=== PATIENT | female | born 1995 | race Hispanic/Latino ===

== ENCOUNTER 2018-03-05 14:32 | Emergency (ER) | payer SELFPAY ==
[2018-03-05] MEDS ORDERED: SUCRALFATE 1GM/10ML UCUP PO ONE (16:00)
[2018-03-05 16:26] LABS: Bicarbonate 25 mEq/L (21-31); Glucose Level 107 mg/dL (65-120); Lipase 29 U/L (22-51); Potassium 3.5 mEq/L (3.6-5.0); Sodium Level 134 mEq/L (135-145)
[2018-03-05 16:30] LABS: Absolute Lymphocytes (CBC) 1.5 K/uL (0.7-4.9); Absolute Monocytes 0.4 K/uL (0.1-1.3); Absolute Neutrophil 6.1 K/uL (1.8-8.0); Basophils % 0.2 % (0-1.3); Eosinophils % 0.6 % (0-4.4); Hematocrit 38.9 % (36.0-45.0); Lymphocytes % 18.4 % (15.3-44.8); MCH 29.4 pg (27.0-35.0); MCV 87.7 fL (80-100); MPV 8.3 fL (7.6-11.3); Monocytes % 5.3 % (3.3-12.3); RBC Red Blood Cell Count 4.43 M/uL (3.86-4.86)
[2018-03-05 16:33] LABS: ALT/SGPT 11 IU/L (10-60); AST/SGOT 14 IU/L (10-42); Albumin 4.3 g/dL (3.2-5.5); Alkaline Phosphatase 43 IU/L (42-121); BUN Blood Urea Nitrogen 12 mg/dL (6-20); Bilirubin Direct < 0.1 mg/dL (0-0.2); Bilirubin Total 0.5 mg/dL (0.3-1.2); Protein, Total 7.2 g/dL (6.0-8.3)
[2018-03-05 16:35] LABS: Urine Bacteria LOADED /HPF (<20); Urine Culture Reflex Order REFLEXED; Urine RBC <5 /HPF (NONE SEEN)
[2018-03-05 16:36] LABS: Urine Blood NEGATIVE (NEG); Urine Glucose NEGATIVE (NEG); Urine Protein TRACE (NEG); Urine Specific Gravity 1.025 (1.005-1.030); Urine pH 6.5 (5.0-7.0)
--- NOTE | 2018-03-05 18:30 | RAD REPORT ---
EXAM DESCRIPTION: US - 1St Trimest Single 1St Fetus - 03/05/2018 5:25 pm CLINICAL HISTORY: with abdominal pain COMPARISON: None FINDINGS: The uterus measures 8 x 6 x 7 centimeters. An intrauterine with a crown-rump length of 2.3 centimeters is seen cardiac activity is not visualized. The ovaries are normal in size and echotexture. No significant free fluid is seen. IMPRESSION: demise with an estimated gestational age 9 weeks 0 days
--- NOTE | 2018-03-05 19:06 | EDPHYS ---
Physician Documentation [facility] Name: Patsy Gupta Age: 22 yrs Sex: Female : 1995 Arrival Date: 03/05/2018 Time: 14:33 Bed 13 Private MD: ED Physician Ankush Santacruz HPI: 03/05 19:18 This 22 yrs old Female presents to ER via Ambulatory with complaints of gs Abdominal Pain. 19:18 The patient presents with pelvic pain, that is located in/on the right lower quadrant gs and left lower quadrant. Onset: The symptoms/episode began/occurred gradually, 2 day(s) ago, and became persistent. Modifying factors: The symptoms are alleviated by nothing, the symptoms are aggravated by urinating. Associated signs and symptoms: Pertinent negatives: fever, vaginal bleeding, vaginal discharge, vomiting. Severity of symptoms: At their worst the symptoms were moderate, in the emergency department the symptoms are unchanged. The patient has not experienced similar symptoms in the past. 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 - Social history:: Smoking status: Patient/guardian denies using tobacco. ROS: 19:18 All other systems are negative. gs Exam: 19:18 Head/Face: Normocephalic, atraumatic. Eyes: Pupils equal round and reactive to light, gs extra-ocular motions intact. Lids and lashes normal. Conjunctiva and sclera are non-icteric and not injected. Cornea within normal limits. Periorbital areas with no swelling, redness, or edema. ENT: Nares patent. No nasal discharge, no septal abnormalities noted. Tympanic membranes are normal and external auditory canals are clear. Oropharynx with no redness, swelling, or masses, exudates, or evidence of obstruction, uvula midline. Mucous membranes moist. Neck: Trachea midline, no thyromegaly or masses palpated, and no cervical lymphadenopathy. Supple, full range of motion without nuchal rigidity, or vertebral point tenderness. No Meningismus. Chest/axilla: Normal chest wall appearance and motion. Nontender with no deformity. No lesions are appreciated. Cardiovascular: Regular rate and rhythm with a normal S1 and S2. No gallops, murmurs, or rubs. Normal PMI, no JVD. No pulse deficits. Respiratory: Lungs have equal breath sounds bilaterally, clear to auscultation and percussion. No rales, rhonchi or wheezes noted. No increased work of breathing, no retractions or nasal flaring. Back: No spinal tenderness. No costovertebral tenderness. Full range of motion. Skin: Warm, dry with normal turgor. Normal color with no rashes, no lesions, and no evidence of cellulitis. MS/ Extremity: Pulses equal, no cyanosis. Neurovascular intact. Full, normal range of motion. Neuro: Awake and alert, GCS 15, oriented to person, place, time, and situation. Cranial nerves II-XII grossly intact. Motor strength 5/5 in all extremities. Sensory grossly intact. Cerebellar exam normal. Normal gait. 19:18 Constitutional: The patient appears alert, awake. 19:18 Abdomen/GI: Palpation: moderate abdominal tenderness, in the suprapubic area. Vital Signs: 14:38 BP 113 / 78; Pulse 74; Resp 18; Temp 99.4(TE); Pulse Ox 100% on R/A; Weight 45.36 kg; hj Height 5 ft. 1 in. (154.94 cm); Pain 7/10; 16:13 BP 108 / 82; Pulse 62; Resp 14; Temp 98.3; Pulse Ox 99% on R/A; Pain 6/10; ch 17:30 BP 110 / 76; Pulse 65; Resp 18; Temp 98.5; Pulse Ox 99% on R/A; Pain 4/10; ch 18:25 BP 105 / 64; Pulse 62; Resp 16; Pulse Ox 99% on R/A; mh5 14:38 Body Mass Index 18.89 (45.36 kg, 154.94 cm) hj MDM: 15:28 Patient medically screened. 19:18 Differential diagnosis: ectopic , urinary tract infection. Data reviewed: vital signs, nurses notes. Counseling: I had a detailed discussion with the patient and/or guardian regarding: the historical points, exam findings, and any diagnostic results supporting the discharge/admit diagnosis, lab results, the need for outpatient follow up. Response to treatment: the patient's symptoms have markedly improved after treatment, and as a result, I will discharge patient. 03/05 15:32 Order name: Basic Metabolic Panel; Complete Time: 18:48 03/05 15:32 Order name: CBC with Diff; Complete Time: 18:48 03/05 15:32 Order name: Hepatic Function; Complete Time: 18:48 03/05 15:32 Order name: Lipase; Complete Time: 18:48 03/05 15:32 Order name: Urine Microscopic Only; Complete Time: 18:48 03/05 16:25 Order name: Urine --Ancillary (enter results); Complete Time: 18:48 03/05 15:32 Order name: Urine Test (obtain specimen); Complete Time: 16:43 03/05 15:32 Order name: Labs collected and sent; Complete Time: 18:50 03/05 16:25 Order name: Urine Dipstick--Ancillary (enter results); Complete Time: 18:48 03/05 16:36 Order name: Urine Culture [facility] 03/05 16:42 Order name: 1St Trimest Single 1St Fetus; Complete Time: 18:48 [facility] 03/05 15:32 Order name: Urine Dipstick-Ancillary (obtain specimen); Complete Time: 16:42 Administered Medications: 16:13 Drug: CarafATE 1 grams Route: PO; 16:42 Follow up: Response: No adverse reaction Disposition: 03/05/18 19:05 Discharged to Home. Impression: Cystitis, Incomplete spontaneous without complication. - Condition is Stable. - Discharge Instructions: Incomplete Miscarriage, Urinary Tract Infection. - Prescriptions for Macrobid 100 mg Oral Capsule - take 1 capsule by ORAL route every 12 hours for 5 days; 10 capsule. - School release form, Work release form, Medication Reconciliation Form, Thank You Letter, Antibiotic Education, Prescription Opioid Use form. - Follow up: Snow Ni MD; When: 2 - 3 days; Reason: Re-evaluation by your physician. Signatures: Dispatcher [employer] [facility] Rakel Urrutia RN RN Evans Hein RN RN hj Starr, Gregory, MD MD Winsome Reece RN RN rk2 Corrections: (The following items were deleted from the chart) 16:42 16:17 Pelvis Complete+US.RAD.BRZ ordered. EDMS EDMS 19:37 19:05 03/05/2018 19:05 Discharged to Home. Impression: Cystitis; Incomplete spontaneous rk2 without complication. Condition is Stable. Forms are School release form, Work release form, Medication Reconciliation Form, Thank You Letter, Antibiotic Education, Prescription Opioid Use. Follow up: Snow Ni; When: 2 - 3 days; Reason: Re-evaluation by your physician. gs
--- NOTE | 2018-03-05 19:06 | ER ---
Nurse's Notes [facility] Name: Patsy Gupta Age: 22 yrs Sex: Female : 1995 Arrival Date: 03/05/2018 Time: 14:33 Bed 13 Private MD: Diagnosis: Cystitis;Incomplete spontaneous without complication Presentation: 03/05 14:37 Presenting complaint: Patient states: i have this abd pain since last week, denies hj nausea and vomiting; denies diarrhea or constipation; denies fever and chills;. Transition of care: patient was not received from another setting of care. Onset of symptoms was March 05, 2018 at 14:38. Initial Sepsis Screen: Does the patient meet any 2 criteria? No. Patient's initial sepsis screen is negative. Does the patient have a suspected source of infection? No. Patient's initial sepsis screen is negative. Care prior to arrival: None. 14:37 Method Of Arrival: Ambulatory 14:37 Acuity: EMIR 3 hj Triage Assessment: 14:38 General: Appears in no apparent distress. uncomfortable, Behavior is calm, cooperative, hj appropriate for age. Pain: Complains of pain in abdomen. GI: Reports lower abdominal pain, upper abdominal pain. 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 - Social history:: Smoking status: Patient/guardian denies using tobacco. Screenin:13 Abuse screen: Denies threats or abuse. Denies injuries from another. Nutritional ch screening: No deficits noted. Tuberculosis screening: No symptoms or risk factors identified. Fall Risk None identified. Assessment: 14:40 GI: Bowel sounds present X 4 quads. Abd is soft Abdomen is tender to palpation. hj 16:13 General: Appears in no apparent distress. comfortable, Behavior is calm, cooperative, ch appropriate for age. Pain: Complains of pain in abdomen Pain currently is 6 out of 10 on a pain scale. Neuro: No deficits noted. Respiratory: Airway is patent Respiratory effort is even, unlabored, Breath sounds are clear bilaterally. Derm: Skin is pink, warm \T\ dry. 16:24 Reassessment: Patient appears in no apparent distress at this time. pt states she does ch not want an IV because she has her child with her. pt is trying to get her sister to come watch the baby. physician notified pt has a positive urine . 16:51 Reassessment: Patient appears in no apparent distress at this time. pt transported to US by wheelchair. 17:45 Reassessment: Patient appears in no apparent distress at this time. No changes from previously documented assessment. Patient and/or family updated on plan of care and expected duration. Pain level reassessed. Patient is alert, oriented x 3, equal unlabored respirations, skin warm/dry/pink. 18:51 Reassessment: Patient appears in no apparent distress at this time. No changes from previously documented assessment. Patient and/or family updated on plan of care and expected duration. Pain level reassessed. Patient is alert, oriented x 3, equal unlabored respirations, skin warm/dry/pink. Vital Signs: 14:38 BP 113 / 78; Pulse 74; Resp 18; Temp 99.4(TE); Pulse Ox 100% on R/A; Weight 45.36 kg; hj Height 5 ft. 1 in. (154.94 cm); Pain 7/10; 16:13 BP 108 / 82; Pulse 62; Resp 14; Temp 98.3; Pulse Ox 99% on R/A; Pain 6/10; ch 17:30 BP 110 / 76; Pulse 65; Resp 18; Temp 98.5; Pulse Ox 99% on R/A; Pain 4/10; ch 18:25 BP 105 / 64; Pulse 62; Resp 16; Pulse Ox 99% on R/A; mh5 14:38 Body Mass Index 18.89 (45.36 kg, 154.94 cm) ED Course: 14:33 Patient arrived in ED. sb2 14:38 Triage completed. hj 14:40 Arm band placed on right wrist. 14:49 Ankush Santacruz MD is Attending Physician. 14:59 Rakel Urrutia, MATTHEW is Primary Nurse. 16:13 No apparent distress. Resting quietly. 16:13 Patient has correct armband on for positive identification. Bed in low position. Call light in reach. Side rails up X 1. Adult w/ patient. Pulse ox on. NIBP on. 16:13 No provider procedures requiring assistance completed. Initial lab(s) drawn, by wy, sent to lab. Urine collected: clean catch specimen. 17:04 Ultrasound completed. Patient tolerated well. cy 17:25 1[facility] Trimest Single 1St Fetus In Process Unspecified. EDMS 17:30 Patient did not have IV access during this emergency room visit. 19:01 Snow Ni MD is Referral Physician. Administered Medications: 16:13 Drug: CarafATE 1 grams Route: PO; 16:42 Follow up: Response: No adverse reaction Outcome: 19:05 Discharge ordered by . 19:37 Discharged to 2 19:37 Condition: good 19:37 Discharge instructions given to patient, Prescriptions given X 1. 19:37 Patient left the ED. rk2 Signatures: Dispatcher [employer] EDMS Rakel Urrutia, MATTHEW RN Evans Banuelos RN RN Carol Ann Wiseman 5 nAkush Santacruz MD MD [facility] Winsome Reece RN RN rk2 Ivon Guajardo sb2 Corrections: (The following items were deleted from the chart) 14:40 14:38 Pulse 74bpm; Resp 18bpm; Pulse Ox 100% RA; Temp 99.4F Temporal; 45.36 kg; Height hj 5 ft. 1 in.; BMI: 18.8; Pain 7/10; hj
[2018-03-05 20:29] VITALS: O2SAT 99
[2018-03-05 20:31] VITALS: TEMP 98.5
[2018-03-05 20:32] VITALS: BP 105/64
== END 2018-03-05 19:37 | disposition home or self-care (01) ==
LOC: ER 14:32
DX: O03.4 Incomplete spontaneous abortion without complication (principal); O23.11 Infections of bladder in pregnancy, first trimester
CPT/HCPCS: 36415; 76801; 80048; 80076; 81003; 81015; 81025; 83690; 85025; 87077; 87086; 87088; 87186; 99284

== ENCOUNTER 2018-03-25 15:04 | Emergency (ER) | payer SELFPAY ==
[2018-03-25] MEDS ORDERED: METHYLPREDNISOLONE 125 MG INJ ONE (15:13)
[2018-03-25] MEDS ORDERED: DIPHENHYDRAMINE 50 MG/ML VIAL ONE (15:14)
[2018-03-25] MEDS ORDERED: DEXAMETHASONE 10 MG/ML VIAL ONE (15:14)
[2018-03-25] MEDS ORDERED: NA CHLORIDE 0.9% 1,000 ML ONE (15:14)
[2018-03-25] MEDS ORDERED: FAMOTIDINE 20 MG/2 ML VIAL IV ONE (15:19)
[2018-03-25 15:33] LABS: Absolute Lymphocytes (CBC) 2.6 K/uL (0.7-4.9); Absolute Monocytes 0.3 K/uL (0.1-1.3); Absolute Neutrophil 3.8 K/uL (1.8-8.0); Basophils % 0.1 % (0-1.3); Eosinophils % 0.2 % (0-4.4); Hematocrit 47.6 % (36.0-45.0); Lymphocytes % 39.1 % (15.3-44.8); MCH 29.3 pg (27.0-35.0); MCV 89.2 fL (80-100); MPV 8.1 fL (7.6-11.3); Monocytes % 4.3 % (3.3-12.3); RBC Red Blood Cell Count 5.34 M/uL (3.86-4.86)
[2018-03-25] MEDS ORDERED: predniSONE 20 MG TAB ONE (15:45)
[2018-03-25 15:48] LABS: BUN Blood Urea Nitrogen 12 mg/dL (6-20); Bicarbonate 25 mEq/L (21-31); Glucose Level 104 mg/dL (65-120); Potassium 3.7 mEq/L (3.6-5.0); Sodium Level 135 mEq/L (135-145)
--- NOTE | 2018-03-25 16:08 | EDPHYS ---
Physician Documentation [facility] Name: Patsy Gupta Age: 22 yrs Sex: Female : 1995 Arrival Date: 03/25/2018 Time: 15:08 Bed 4 Private MD: Out, [facility] ED Physician Joseph Jim HPI: 03/25 15:21 This 22 yrs old Female presents to ER via Ambulatory with complaints of nick Allergic Reaction. 15:21 The patient presents with difficulty swallowing, hoarse voice, itching, rash, redness nick of skin, swelling of the lips. Onset: The symptoms/episode began/occurred just prior to arrival. Associated signs and symptoms: The patient has no apparent associated signs or symptoms. Possible causes: ants. At home the patient or guardian has treated the symptoms with nothing. Severity of symptoms: At their worst the symptoms were mild moderate in the emergency department the symptoms are unchanged. The patient has not experienced similar symptoms in the past. Historical: - Allergies: 15:15 No Known Allergies; ph - Home Meds: 15:15 None [Active]; ph - PMHx: 15:15 None; ph - PSHx: 15:15 None; ph - Immunization history:: Adult Immunizations up to date. - Social history:: Smoking status: Patient/guardian denies using tobacco. - Ebola Screening: : Patient negative for fever greater than or equal to 101.5 degrees Fahrenheit, and additional compatible Ebola Virus Disease symptoms Patient denies exposure to infectious person Patient denies travel to an Ebola-affected area in the 21 days before illness onset No symptoms or risks identified at this time. ROS: 15:22 Constitutional: Negative for fever, chills, and weight loss, Eyes: Negative for injury, nick pain, redness, and discharge, Neck: Negative for injury, pain, and swelling, Cardiovascular: Negative for chest pain, palpitations, and edema, Abdomen/GI: Negative for abdominal pain, nausea, vomiting, diarrhea, and constipation, Back: Negative for injury and pain, : Negative for injury, bleeding, discharge, and swelling, MS/Extremity: Negative for injury and deformity, Neuro: Negative for headache, weakness, numbness, tingling, and seizure, Psych: Negative for depression, anxiety, suicide ideation, homicidal ideation, and hallucinations, Allergy/Immunology: Negative for hives, rash, and allergies, Endocrine: Negative for neck swelling, polydipsia, polyuria, polyphagia, and marked weight changes, Hematologic/Lymphatic: Negative for swollen nodes, abnormal bleeding, and unusual bruising. 15:22 ENT: Positive for difficulty swallowing. 15:22 Respiratory: Positive for shortness of breath. 15:22 Skin: Positive for erythema, rash, swelling, diffusely. 15:22 Neuro: Negative for altered mental status. Exam: 15:22 Constitutional: This is a well developed, well nourished patient who is awake, alert, nick and in no acute distress. Head/Face: Normocephalic, atraumatic. Eyes: Pupils equal round and reactive to light, extra-ocular motions intact. Lids and lashes normal. Conjunctiva and sclera are non-icteric and not injected. Cornea within normal limits. Periorbital areas with no swelling, redness, or edema. Neck: Trachea midline, no thyromegaly or masses palpated, and no cervical lymphadenopathy. Supple, full range of motion without nuchal rigidity, or vertebral point tenderness. No Meningismus. Chest/axilla: Normal chest wall appearance and motion. Nontender with no deformity. No lesions are appreciated. Respiratory: Lungs have equal breath sounds bilaterally, clear to auscultation and percussion. No rales, rhonchi or wheezes noted. No increased work of breathing, no retractions or nasal flaring. Abdomen/GI: Soft, non-tender, with normal bowel sounds. No distension or tympany. No guarding or rebound. No evidence of tenderness throughout. Back: No spinal tenderness. No costovertebral tenderness. Full range of motion. MS/ Extremity: Pulses equal, no cyanosis. Neurovascular intact. Full, normal range of motion. Neuro: Awake and alert, GCS 15, oriented to person, place, time, and situation. Cranial nerves II-XII grossly intact. Motor strength 5/5 in all extremities. Sensory grossly intact. Cerebellar exam normal. Normal gait. 15:22 ENT: Posterior pharynx: Airway: no evidence of obstruction, Tonsils: are normal in appearance, Uvula: normal, midline, erythema, swelling, that is mild, erythema, that is mild, exudate, peritonsillar mass, is not appreciated. Vital Signs: 15:15 BP 137 / 101; Pulse 134; Resp 28; Temp 99.6(TE); Pulse Ox 99% on R/A; Weight 44.91 kg; ph 15:32 BP 132 / 90; Pulse 79 MON; Resp 17 S; Pulse Ox 100% on 3 lpm NC; sg 16:00 BP 111 / 68; Pulse 59 MON; Resp 18; Pulse Ox 100% on 3 lpm NC; Pain 0/10; sg Bing Coma Score: 15:32 Eye Response: spontaneous(4). Verbal Response: oriented(5). Motor Response: obeys sg commands(6). Total: 15. MDM: 15:13 Patient medically screened. [facility] 16:06 Data reviewed: vital signs, nurses notes, lab test result(s), CBC, electrolytes. [facility] 03/25 15:15 Order name: CBC with Diff; Complete Time: 16:06 [facility] 03/25 15:15 Order name: Chem 7; Complete Time: 16:06 [facility] Administered Medications: 15:18 Drug: Benadryl 50 mg Route: IVP; Site: right antecubital; sg 15:20 Drug: NS 0.9% 1000 ml Route: IV; Rate: 1 bolus; Site: right antecubital; sg 15:20 Drug: SOLU-Medrol 125 mg Route: IVP; Site: right antecubital; sg 15:20 Drug: Pepcid 40 mg Route: IVP; Site: right antecubital; sg 15:45 Drug: predniSONE 40 mg Route: PO; sg Disposition: 03/25/18 16:07 Discharged to Home. Impression: Insect allergy status, Urticaria. - Condition is Stable. - Discharge Instructions: Allergies, Hives, Hives, [id number]. - Prescriptions for Benadryl 25 mg Oral Capsule - take 1 capsule by ORAL route every 6 hours As needed; 30 tablet. Pepcid 20 mg Oral Tablet - take 1 tablet by ORAL route every 12 hours for 10 days; 20 tablet. Prednisone 20 mg Oral Tablet - take 2 tablet by ORAL route once daily for 5 days; 10 tablet. EpiPen 0.3 mg Injection auto- injector - inject 1 pen by INTRAMUSCULAR route one time Inject into the outer portion of the thigh, through clothing if necessary. Indicated in the emergency treatment of allergic reactions; 1 Cartridge. - Medication Reconciliation Form, Thank You Letter, Antibiotic Education, Prescription Opioid Use form. - Follow up: Private Physician; When: 2 - 3 days; Reason: Recheck today's complaints, Continuance of care, Re-evaluation by your physician. - Problem is new. - Symptoms have improved. Signatures: Dispatcher [employer] EDMS Migel Penaloza RN RN sg Joseph Jim MD MD cha Hall, Patricia, RN RN ph Corrections: (The following items were deleted from the chart) 17:46 16:07 03/25/2018 16:07 Discharged to Home. Impression: Insect allergy status; sg Urticaria. Condition is Stable. Discharge Instructions: Allergies, Hives, Hives, [id number]. Prescriptions for Benadryl 25 mg Oral Capsule - take 1 capsule by ORAL route every 6 hours As needed; 30 tablet, Pepcid 20 mg Oral Tablet - take 1 tablet by ORAL route every 12 hours for 10 days; 20 tablet, Prednisone 20 mg Oral Tablet - take 2 tablet by ORAL route once daily for 5 days; 10 tablet, EpiPen 0.3 mg Injection auto-injector - inject 1 pen by INTRAMUSCULAR route one time Inject into the outer portion of the thigh, through clothing if necessary. Indicated in the emergency treatment of allergic reactions; 1 Cartridge. and Forms are Medication Reconciliation Form, Thank You Letter, Antibiotic Education, Prescription Opioid Use. Follow up: Private Physician; When: 2 - 3 days; Reason: Recheck today's complaints, Continuance of care, Re-evaluation by your physician. Problem is new. Symptoms have improved. nick
--- NOTE | 2018-03-25 16:08 | ER ---
Nurse's Notes [facility] Name: Patsy Gupta Age: 22 yrs Sex: Female : 1995 Arrival Date: 03/25/2018 Time: 15:08 Bed 4 Private MD: Out, [facility] Diagnosis: Insect allergy status;Urticaria Presentation: 03/25 15:13 Presenting complaint: Patient states: " I was at the pool and I got bit by 2 fire ants. ph Now I'm itching all over and I feel like my throat is closing." Pt tearful and anxious in triage, taken to trauma bed 4. Transition of care: patient was not received from another setting of care. Onset: The symptoms/episode began/occurred acutely. Anaphylaxis evaluation, the patient reports or I have noted the following symptoms which indicate a significant risk of anaphylaxis: lightheadedness shortness of breath tachypnea urticaria. Onset of symptoms was March 25, 2018. Risk Assessment: Do you want to hurt yourself or someone else? Patient reports no desire to harm self or others. Initial Sepsis Screen: Does the patient meet any 2 criteria? No. Patient's initial sepsis screen is negative. Does the patient have a suspected source of infection? No. Patient's initial sepsis screen is negative. Care prior to arrival: None. 15:13 Method Of Arrival: Ambulatory ph 15:13 Acuity: EMIR 1 ph Historical: - Allergies: 15:15 No Known Allergies; ph - Home Meds: 15:15 None [Active]; ph - PMHx: 15:15 None; ph - PSHx: 15:15 None; ph - Immunization history:: Adult Immunizations up to date. - Social history:: Smoking status: Patient/guardian denies using tobacco. - Ebola Screening: : Patient negative for fever greater than or equal to 101.5 degrees Fahrenheit, and additional compatible Ebola Virus Disease symptoms Patient denies exposure to infectious person Patient denies travel to an Ebola-affected area in the 21 days before illness onset No symptoms or risks identified at this time. Screenin:15 Abuse screen: Denies threats or abuse. Denies injuries from another. Nutritional sg screening: No deficits noted. Tuberculosis screening: No symptoms or risk factors identified. Never had TB. Fall Risk None identified. Assessment: 15:15 General: Appears distressed, well groomed, well developed, well nourished, Behavior is sg calm, cooperative, appropriate for age. Pain: Denies pain. Neuro: Level of Consciousness is awake, alert, obeys commands, Oriented to person, place, time, situation, Vp Home Health are equal bilaterally Moves all extremities. Full function Speech is normal, Facial symmetry appears normal. Cardiovascular: Heart tones S1 S2 present Capillary refill is brisk in bilateral fingers Patient's skin is warm and dry. Chest pain is denied. Respiratory: Airway is patent Respiratory effort is even, labored, Respiratory pattern is symmetrical, tachypnea Breath sounds with wheezes in right posterior upper lobe and right posterior middle lobe. GI: Abdomen is flat, non-distended. : No signs and/or symptoms were reported regarding the genitourinary system. EENT: Nares are clear bilaterally Oral mucosa is moist. Throat is reddened Reports difficulty swallowing has hoarseness upon speaking. Derm: Skin is intact, is healthy with good turgor, Skin is dry, Skin is Skin temperature is warm Rash noted that is macular, itchy, red, urticaria. Musculoskeletal: No signs and/or symptoms reported regarding the musculoskeletal system. 15:31 Reassessment: Patient is alert, oriented x 3, equal unlabored respirations, skin sg warm/dry/pink. Patient states feeling better. Patient states symptoms have improved. Respiratory: Airway is patent Respiratory effort is even, unlabored, Respiratory pattern is regular, symmetrical, Breath sounds with wheezes in right posterior upper lobe and right posterior middle lobe the patient reports symptoms have resolved. Vital Signs: 15:15 BP 137 / 101; Pulse 134; Resp 28; Temp 99.6(TE); Pulse Ox 99% on R/A; Weight 44.91 kg; ph 15:32 BP 132 / 90; Pulse 79 MON; Resp 17 S; Pulse Ox 100% on 3 lpm NC; sg 16:00 BP 111 / 68; Pulse 59 MON; Resp 18; Pulse Ox 100% on 3 lpm NC; Pain 0/10; sg Bing Coma Score: 15:32 Eye Response: spontaneous(4). Verbal Response: oriented(5). Motor Response: obeys sg commands(6). Total: 15. ED Course: 15:08 Patient arrived in ED. sb2 15:08 Out, [facility] is Private Physician. sb2 15:13 Joseph Jim MD is Attending Physician. [facility] 15:13 Trevon Nicole NP is PHCP. pm1 15:13 Inserted saline lock: 20 gauge in right antecubital area, using aseptic technique. Blood collected. Oxygen administration via nasal cannula \\T\\ 2L/min. 15:15 Triage completed. ph 15:15 Patient has correct armband on for positive identification. Bed in low position. Call sg light in reach. Side rails up X2. bus driver/monitor on. Pulse ox on. NIBP on. Warm blanket given. Head of bed elevated. 15:16 Arm band placed on. ph 15:19 Migel Penaloza, RN is Primary Nurse. sg 17:40 No provider procedures requiring assistance completed. IV discontinued, intact, sg bleeding controlled, No redness/swelling at site. Pressure dressing applied. Administered Medications: 15:18 Drug: Benadryl 50 mg Route: IVP; Site: right antecubital; sg 15:20 Drug: NS 0.9% 1000 ml Route: IV; Rate: 1 bolus; Site: right antecubital; sg 15:20 Drug: SOLU-Medrol 125 mg Route: IVP; Site: right antecubital; sg 15:20 Drug: Pepcid 40 mg Route: IVP; Site: right antecubital; sg 15:45 Drug: predniSONE 40 mg Route: PO; sg Outcome: 16:07 Discharge ordered by . [facility] 17:40 Discharged to home ambulatory, with family. sg 17:40 Condition: good 17:40 Discharge instructions given to patient, Instructed on discharge instructions, follow up and referral plans. medication usage, safety practices, Demonstrated understanding of instructions, follow-up care, medications, Prescriptions given X 4. 17:46 Patient left the ED. sg Signatures: Migel Penaloza RN RN Joseph Jim MD MD cha Smirch, Shelby, RN RN Kate Booker RN RN Trevon Nicole NP UI UX DEVELOPER pm1 Ivon Guajardo sb2 Corrections: (The following items were deleted from the chart) 15:16 15:13 Acuity: EMIR 2 ph ph
[2018-03-25 17:50] VITALS: TEMP 99.6
[2018-03-25 17:52] VITALS: O2SAT 100
[2018-03-25 17:53] VITALS: BP 111/68
== END 2018-03-25 17:46 | disposition home or self-care (01) ==
LOC: ER 15:04
DX: L50.9 Urticaria, unspecified (principal); Z91.038 Other insect allergy status
CPT/HCPCS: 36415; 80048; 85025; 96374; 96375; 99291; J1100; J2930; J7030; J7512

== ENCOUNTER 2018-09-22 11:26 | Emergency (ER) | payer SELFPAY ==
[2018-09-22] MEDS ORDERED: NA CHLORIDE 0.9% 1,000 ML ONE (12:08)
[2018-09-22] MEDS ORDERED: KETOROLAC 30 MG/ML INJ ONE (12:08)
[2018-09-22] MEDS ORDERED: ONDANSETRON 4 MG/2 ML VIAL ONE ×2 (12:08→12:46)
[2018-09-22 12:24] LABS: Absolute Lymphocytes (CBC) 0.6 K/uL (0.7-4.9); Absolute Monocytes 0.2 K/uL (0.1-1.3); Absolute Neutrophil 7.9 K/uL (1.8-8.0); Basophils % 0.1 % (0-1.3); Eosinophils % 0.4 % (0-4.4); Hematocrit 41.6 % (36.0-45.0); Lymphocytes % 6.5 % (15.3-44.8); MCH 30.2 pg (27.0-35.0); MCV 88.1 fL (80-100); MPV 8.8 fL (7.6-11.3); Monocytes % 2.5 % (3.3-12.3); RBC Red Blood Cell Count 4.73 M/uL (3.86-4.86)
[2018-09-22 12:31] LABS: Urine Blood NEGATIVE (NEG); Urine Glucose NEGATIVE (NEG); Urine Protein NEGATIVE (NEG); Urine Specific Gravity 1.025 (1.005-1.030)
[2018-09-22 12:40] LABS: ALT/SGPT 19 U/L (12-78); AST/SGOT 14 U/L (15-37); Albumin 4.3 g/dL (3.4-5.0); Alkaline Phosphatase 88 U/L (45-117); BUN Blood Urea Nitrogen 18 mg/dL (7-18); Bicarbonate 25 mmol/L (21-32); Bilirubin Direct 0.2 mg/dL (0-0.2); Bilirubin Total 0.6 mg/dL (0.2-1.0); Glucose Level 96 mg/dL (74-106); Lipase 196 U/L (73-393); Potassium 3.7 mmol/L (3.5-5.1); Protein, Total 7.9 g/dL (6.4-8.2); Sodium Level 138 mmol/L (136-145)
[2018-09-22 12:43] LABS: Blood Morphology Comment NOT SEEN (NOT SEEN); Platelet Estimate ADEQ; Urine White Blood Cell Casts OK
[2018-09-22] MEDS ORDERED: PROMETHAZINE 25 MG/ML VIAL ONE (13:21)
--- NOTE | 2018-09-22 14:20 | RAD REPORT ---
EXAM DESCRIPTION: CTAbdomen Pelvis W Contrast - 09/22/2018 2:06 pm CLINICAL HISTORY: Abdominal pain. lower abdomen pain COMPARISON: [facility] Protocol dated 09/23/2017 TECHNIQUE: Biphasic CT imaging of the abdomen and pelvis was performed with 100 ml non-ionic IV cont rast. All CT scans are performed using dose optimization technique as appropriate and may include automated exposure control or mA/KV adjustment according to patient size. FINDINGS: The lung bases are clear. The liver, spleen, pancreas, adrenal glands and kidneys are within normal limits. No bowel obstruction, free air, free fluid or abscess. The appendix is normal. No evidence of signi ficant lymphadenopathy. No suspicious bony findings. IMPRESSION: No acute intra-abdominal or pelvic finding.
--- NOTE | 2018-09-22 14:52 | EDPHYS ---
Physician Documentation [facility] Name: Patsy Gupta Age: 23 yrs Sex: Female : 1995 Arrival Date: 09/22/2018 Time: 11:29 Bed 4 Private MD: ED Physician Joseph Jim HPI: 09/22 11:57 This 23 yrs old Female presents to ER via Ambulatory with complaints of Pain cp All Over, Vomiting. 11:57 The patient presents with pain that is acute, with no known mechanism of injury, and cp tenderness. The symptoms are located in the low back. The pain does not radiate. The problem was sustained from unknown cause. Onset: The symptoms/episode began/occurred last night. 11:58 The patient presents with abdominal pain in the lower abdomen. Onset: The cp symptoms/episode began/occurred this morning. Associated signs and symptoms: Pertinent negatives: constipation, diarrhea, fever, vomiting. 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 - Social history:: Smoking status: Patient/guardian denies using tobacco. - Ebola Screening: : Patient denies travel to an Ebola-affected area in the 21 days before illness onset. ROS: 12:00 Eyes: Negative for injury, pain, redness, and discharge. cp 12:00 Constitutional: Negative for body aches, chills, fever, poor PO intake. 12:00 ENT: Negative for drainage from ear(s), ear pain, sore throat, difficulty swallowing, difficulty handling secretions. 12:00 Cardiovascular: Negative for chest pain, edema, palpitations. 12:00 Respiratory: Negative for cough, shortness of breath, wheezing. 12:00 Abdomen/GI: Positive for abdominal pain, of the right lower quadrant and left lower quadrant, Negative for vomiting, diarrhea, constipation. 12:00 Back: Positive for pain at rest, pain with movement, of the low back area. cp 12:00 : Negative for vaginal bleeding, vaginal discharge. 12:00 Skin: Negative for cellulitis, rash. 12:00 Neuro: Negative for altered mental status, headache, weakness. 12:00 All other systems are negative. Exam: 12:07 Constitutional: The patient appears in no acute distress, alert, awake, non-toxic, well cp developed, well nourished. 12:07 Head/Face: Normocephalic, atraumatic. Eyes: Pupils equal round and reactive to light, cp extra-ocular motions intact. Lids and lashes normal. Conjunctiva and sclera are non-icteric and not injected. Cornea within normal limits. Periorbital areas with no swelling, redness, or edema. ENT: Nares patent. No nasal discharge, no septal abnormalities noted. Tympanic membranes are normal and external auditory canals are clear. Oropharynx with no redness, swelling, or masses, exudates, or evidence of obstruction, uvula midline. Mucous membranes moist. Neck: Trachea midline, no thyromegaly or masses palpated, and no cervical lymphadenopathy. Supple, full range of motion without nuchal rigidity, or vertebral point tenderness. No Meningismus. Chest/axilla: Normal chest wall appearance and motion. Nontender with no deformity. No lesions are appreciated. 12:07 Cardiovascular: Rate: normal, Rhythm: regular, Heart sounds: murmur, not appreciated, Edema: is not appreciated, JVD: is not appreciated. 12:07 Respiratory: the patient does not display signs of respiratory distress, Respirations: normal, no use of accessory muscles, no retractions, no splinting, no tachypnea, labored breathing, is not present, Breath sounds: are clear throughout, no decreased breath sounds, no stridor, no wheezing. 12:07 Abdomen/GI: Inspection: abdomen appears normal, Bowel sounds: active, all quadrants, Palpation: soft, in all quadrants, moderate abdominal tenderness, in the right lower quadrant and left lower quadrant, rebound tenderness, is not appreciated, involuntary guarding, is not appreciated. 12:07 Back: pain, that is moderate, of the low back area and mid back area, ROM is painful, Straight leg raises: of both lower extremities does not illicit pain. 12:07 Musculoskeletal/extremity: Extremities: all appear grossly normal, with no appreciated pain with palpation. 12:07 Skin: cellulitis, is not appreciated, no rash present. 12:07 Neuro: Orientation: to person, place \T\ time. Mentation: is normal, Cerebellar function: is grossly normal, Motor: is normal, Sensation: is normal. 14:50 : Pelvic Exam: The exam is refused by the patient/guardian. The risks and cp consequences are understood by the patient. Vital Signs: 11:37 BP 118 / 62; Pulse 87; Resp 18; Temp 98.7; Pulse Ox 98% on R/A; Height 5 ft. 1 in. aj1 (154.94 cm) (R); Pain 10/10; 13:40 BP 96 / 59; Pulse 67; Resp 14; Pulse Ox 100% on R/A; mh5 MDM: 11:41 Patient medically screened. cp 12:00 Differential diagnosis: sciatica, UTI, appendicitis, cholecystitis, Cholelithiasis, cp gastritis, Ovarian Torsion, Pyelonephritis, PID. 14:50 Data reviewed: vital signs, nurses notes, lab test result(s), radiologic studies, CT cp scan. Refusal of service: The patient/guardian displays adequate decision making capability and despite a detailed discussion of alternatives, benefits, risks, and consequences refuses: pelvic exam. 14:51 Counseling: I had a detailed discussion with the patient and/or guardian regarding: the cp historical points, exam findings, and any diagnostic results supporting the discharge/admit diagnosis, lab results, radiology results, to return to the emergency department if symptoms worsen or persist or if there are any questions or concerns that arise at home. 14:51 Response to treatment: the patient's symptoms have markedly improved after treatment, cp VSS. Pain and nausea markedly improved. Will discharge to home for continued monitoring. 09/22 11:53 Order name: Urine Dipstick--Ancillary (enter results); Complete Time: 12:45 sv 09/22 11:53 Order name: Urine --Ancillary (enter results); Complete Time: 12:45 sv 09/22 11:56 Order name: Basic Metabolic Panel; Complete Time: 12:45 cp 09/22 12:46 Interpretation: Normal except: CA 8.4. cp 09/22 11:56 Order name: CBC with Diff; Complete Time: 12:45 cp 09/22 12:46 Interpretation: Normal except: BLUE% 90.5; LYM% 6.5; MN% 2.5. cp 09/22 11:56 Order name: Creatinine for Radiology; Complete Time: 12:45 cp 09/22 11:56 Order name: Hepatic Function; Complete Time: 12:45 cp 09/22 12:46 Interpretation: Normal except: AST 14; GLOB 3.6. cp 09/22 11:56 Order name: Lipase; Complete Time: 12:45 cp 09/22 11:56 Order name: CT Abd/Pelvis - W/Contrast; Complete Time: 14:47 cp 09/22 14:47 Interpretation: Report reviewed. cp 09/22 12:25 Order name: CBC Smear Scan; Complete Time: 12:45 EDMS 09/22 11:41 Order name: Urine Dipstick-Ancillary (obtain specimen); Complete Time: 11:50 cp 09/22 11:41 Order name: Urine Test (obtain specimen); Complete Time: 11:50 cp 09/22 11:56 Order name: IV Saline Lock; Complete Time: 12:15 cp 09/22 11:56 Order name: Labs collected and sent; Complete Time: 12:15 cp Administered Medications: 12:10 Drug: Zofran 4 mg Route: IVP; Site: right antecubital; sv 12:35 Follow up: Response: No adverse reaction; No change in condition sv 12:10 Drug: NS 0.9% 1000 ml Route: IV; Rate: 1 bolus; Site: right antecubital; sv 13:20 Follow up: Response: No adverse reaction; IV Status: Completed infusion; IV Intake: sv 1000ml 12:12 Drug: TORadol 30 mg Route: IVP; Site: right antecubital; sv 12:30 Follow up: Response: No adverse reaction sv 12:40 Drug: Zofran 4 mg Route: IVP; Site: right antecubital; sv 13:15 Follow up: Response: No adverse reaction; No change in condition sv 13:19 Drug: Phenergan 12.5 mg Route: IVP; Site: right antecubital; sv 13:30 Follow up: Response: No adverse reaction sv Disposition: 09/23 08:25 Co-signature as Attending Physician, Joseph Jim MD I agree with the assessment and nick plan of care. Disposition: 09/22/18 14:52 Discharged to Home. Impression: Nausea and vomiting, Lower abdominal pain, unspecified, Low back pain. - Condition is Stable. - Discharge Instructions: Abdominal Pain, Adult, Back Pain, Adult, Nausea and Vomiting, Adult. - Prescriptions for Bentyl 20 mg Oral Tablet - take 1 tablet by ORAL route every 6 hours As needed; 20 tablet. Ibuprofen 600 mg Oral Tablet - take 1 tablet by ORAL route every 6 hours As needed take with food; 30 tablet. promethazine 25 mg Oral Tablet - take 1 tablet by ORAL route every 6 hours As needed; 20 tablet. - Medication Reconciliation Form, Thank You Letter, Antibiotic Education, Prescription Opioid Use form. - Follow up: Private Physician; When: 2 - 3 days; Reason: Recheck today's complaints. - Problem is new. - Symptoms have improved. Signatures: Dispatcher [employer] EDMS Sharyn Yoder RN RN aj1 Mahi Lauren RN RN sv Joseph Jim MD MD cha Page, Corey, EVELYN RIVAS cp Corrections: (The following items were deleted from the chart) 09/22 12:46 12:46 Normal except. cp cp 15:03 14:52 09/22/2018 14:52 Discharged to Home. Impression: Nausea and vomiting; Lower sv abdominal pain, unspecified; Low back pain. Condition is Stable. Forms are Medication Reconciliation Form, Thank You Letter, Antibiotic Education, Prescription Opioid Use. Follow up: Private Physician; When: 2 - 3 days; Reason: Recheck today's complaints. Problem is new. Symptoms have improved. cp
--- NOTE | 2018-09-22 14:52 | ER ---
Nurse's Notes [facility] Name: Patsy Gupta Age: 23 yrs Sex: Female : 1995 Arrival Date: 09/22/2018 Time: 11:29 Bed 4 Private MD: Diagnosis: Nausea and vomiting;Lower abdominal pain, unspecified;Low back pain Presentation: 09/22 11:34 Presenting complaint: Patient states: "I have bad pain in my back. Last time I had them aj1 like this it was because of my kidneys. I've been feeling nauseous all morning." Reports vomiting once today. Denies fever. Denies dysuria, urinary frequency. Transition of care: patient was not received from another setting of care. Onset of symptoms was September 22, 2018. Risk Assessment: Do you want to hurt yourself or someone else? Patient reports no desire to harm self or others. Initial Sepsis Screen: Does the patient meet any 2 criteria? No. Patient's initial sepsis screen is negative. Does the patient have a suspected source of infection? No. Patient's initial sepsis screen is negative. Care prior to arrival: None. 11:34 Method Of Arrival: Ambulatory aj1 11:34 Acuity: EMIR 3 aj1 Triage Assessment: 11:37 General: Appears in no apparent distress. comfortable, Behavior is calm, cooperative, aj1 appropriate for age. Pain: Complains of pain in back Pain currently is 10 out of 10 on a pain scale. Neuro: Level of Consciousness is awake, alert, obeys commands. Cardiovascular: Patient's skin is warm and dry. Respiratory: Airway is patent Respiratory effort is even, unlabored, Respiratory pattern is regular, symmetrical. GI: Reports nausea, vomiting. 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 - Social history:: Smoking status: Patient/guardian denies using tobacco. - Ebola Screening: : Patient denies travel to an Ebola-affected area in the 21 days before illness onset. Screenin:05 Abuse screen: Denies threats or abuse. Denies injuries from another. Nutritional sv screening: No deficits noted. Tuberculosis screening: No symptoms or risk factors identified. Fall Risk None identified. Assessment: 12:00 General: Appears in no apparent distress. uncomfortable, well developed, Behavior is sv calm, cooperative, appropriate for age. Pain: Complains of pain in back and abdomen Pain currently is 10 out of 10 on a pain scale. Pain began this morning Is intermittent. Neuro: Level of Consciousness is awake, alert, obeys commands, Oriented to person, place, time, situation, Moves all extremities. Full function Gait is steady, Speech is normal. Respiratory: Respiratory effort is even, unlabored, Respiratory pattern is regular, symmetrical. GI: Abdomen is flat, Abdomen is tender to palpation X 4 quads. Reports nausea, vomiting. Derm: Skin is normal. Musculoskeletal: Range of motion: intact in all extremities. 12:40 Reassessment: Patient appears in no apparent distress at this time. Patient and/or sv family updated on plan of care and expected duration. Pain level reassessed. Patient is alert, oriented x 3, equal unlabored respirations, skin warm/dry/pink. GI: Reports nausea. 13:21 Reassessment: Patient appears in no apparent distress at this time. Reassessment: sv Patient appears in no apparent distress at this time. Patient and/or family updated on plan of care and expected duration. Pain level reassessed. Patient is alert, oriented x 3, equal unlabored respirations, skin warm/dry/pink. GI: Reports nausea. 15:02 Reassessment: Patient appears in no apparent distress at this time. Patient and/or sv family updated on plan of care and expected duration. Pain level reassessed. Patient is alert, oriented x 3, equal unlabored respirations, skin warm/dry/pink. Vital Signs: 11:37 BP 118 / 62; Pulse 87; Resp 18; Temp 98.7; Pulse Ox 98% on R/A; Height 5 ft. 1 in. aj1 (154.94 cm) (R); Pain 10/10; 13:40 BP 96 / 59; Pulse 67; Resp 14; Pulse Ox 100% on R/A; mh5 ED Course: 11:29 Patient arrived in ED. mr 11:37 Triage completed. aj1 11:37 Arm band placed on Patient placed in an exam room. aj1 11:40 Joseph Gonzalez PA is PHCP. cp 11:40 Joseph Jim MD is Attending Physician. cp 11:42 Mahi Lauren RN is Primary Nurse. sv 12:05 Patient has correct armband on for positive identification. Placed in gown. Bed in low sv position. Call light in reach. Adult w/ patient. Door closed. Warm blanket given. Head of bed elevated. 12:05 Initial lab(s) drawn, by me, sent to lab. Inserted saline lock: 20 gauge in right sv antecubital area, using aseptic technique. Blood collected. Flushed right antecubital with 5 ml normal saline. 14:04 CT completed. Patient tolerated procedure well. Patient moved to CT via wheelchair. Patient moved back from CT. 14:06 CT Abd/Pelvis - W/Contrast In Process Unspecified. EDMS 15:02 No provider procedures requiring assistance completed. IV discontinued, intact, sv bleeding controlled, No redness/swelling at site. Pressure dressing applied. Administered Medications: 12:10 Drug: Zofran 4 mg Route: IVP; Site: right antecubital; sv 12:35 Follow up: Response: No adverse reaction; No change in condition sv 12:10 Drug: NS 0.9% 1000 ml Route: IV; Rate: 1 bolus; Site: right antecubital; sv 13:20 Follow up: Response: No adverse reaction; IV Status: Completed infusion; IV Intake: sv 1000ml 12:12 Drug: TORadol 30 mg Route: IVP; Site: right antecubital; sv 12:30 Follow up: Response: No adverse reaction sv 12:40 Drug: Zofran 4 mg Route: IVP; Site: right antecubital; sv 13:15 Follow up: Response: No adverse reaction; No change in condition sv 13:19 Drug: Phenergan 12.5 mg Route: IVP; Site: right antecubital; sv 13:30 Follow up: Response: No adverse reaction sv Intake: 13:10 PO: 500ml (Contrast); Total: 500ml. sv 13:20 IV: 1000ml; Total: 1500ml. sv Outcome: 14:52 Discharge ordered by . cp 15:03 Discharged to home ambulatory, with friend. sv 15:03 Condition: stable 15:03 Discharge instructions given to patient, Instructed on discharge instructions, follow up and referral plans. medication usage, Demonstrated understanding of instructions, follow-up care, medications, Prescriptions given X 3. 15:03 Patient left the ED. sv Signatures: Dispatcher [employer] EDSharyn Carter RN RN aj1 Mahi Lauren RN RN sv Kimmie Harris mr Forbes, Joseph Portillo PA PA cp [place], [place] [id number]
[2018-09-22 15:13] VITALS: TEMP 98.7
[2018-09-22 15:15] VITALS: BP 96/59; O2SAT 100
== END 2018-09-22 15:03 | disposition home or self-care (01) ==
LOC: ER 11:26
DX: R10.30 Lower abdominal pain, unspecified (principal); M54.5 Low back pain
CPT/HCPCS: 36415; 74177; 80048; 80076; 81003; 81025; 83690; 85025; 96361; 96374; 96375; 99284; J2405; J2550; J7030; Q9967

== ENCOUNTER 2018-11-25 09:11 | Emergency (ER) | payer SELFPAY ==
--- NOTE | 2018-11-25 09:43 | ER ---
Nurse's Notes [facility] Name: Patsy Gupta Age: 23 yrs Sex: Female : 1995 Arrival Date: 11/25/2018 Time: 09:13 Bed 17 Private MD: Diagnosis: Torticollis Presentation: 11/25 09:15 Presenting complaint: Patient states: right neck pain and right arm pain, unable to sv move neck x 2 days. Transition of care: patient was not received from another setting of care. Onset of symptoms was November 23, 2018. Care prior to arrival: None. 09:15 Method Of Arrival: Ambulatory sv 09:15 Acuity: EMIR 4 sv 09:18 Risk Assessment: Do you want to hurt yourself or someone else? Patient reports no tw2 desire to harm self or others. Initial Sepsis Screen: Does the patient meet any 2 criteria? No. Patient's initial sepsis screen is negative. Does the patient have a suspected source of infection? No. Patient's initial sepsis screen is negative. Triage Assessment: 09:16 General: Appears in no apparent distress. uncomfortable, Behavior is calm, cooperative, sv appropriate for age. Pain: Complains of pain in right arm, right posterior aspect of neck, right lateral aspect of neck and right anterior aspect of neck Pain currently is 10 out of 10 on a pain scale. Neuro: Level of Consciousness is awake, alert, obeys commands, Oriented to person, place, time, situation, Gait is steady. Respiratory: Respiratory effort is even, unlabored, Respiratory pattern is regular, symmetrical. 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 tw2 Historical: - Allergies: 09:15 No Known Allergies; sv - Home Meds: 09:15 None [Active]; sv - PMHx: 09:15 None; sv - PSHx: 09:15 None; sv - Immunization history:: Flu vaccine is not up to date. - Social history:: Smoking status: Patient uses tobacco products, denies chronic smoking, but will smoke occasionally. - Ebola Screening: : No symptoms or risks identified at this time. Screenin:18 Abuse screen: Denies threats or abuse. Nutritional screening: No deficits noted. tw2 Tuberculosis screening: No symptoms or risk factors identified. Fall Risk None identified. Assessment: 09:19 General: Appears in no apparent distress. Behavior is calm, cooperative, appropriate tw2 for age. Pain: Complains of pain in neck and right anterior aspect of neck and right lateral aspect of neck and right posterior aspect of neck. Neuro: Level of Consciousness is awake, alert, obeys commands, Oriented to person, place, time, situation. Cardiovascular: Patient's skin is warm and dry. Respiratory: Airway is patent Respiratory effort is even, unlabored, Respiratory pattern is regular, symmetrical. GI: No signs and/or symptoms were reported involving the gastrointestinal system. : No signs and/or symptoms were reported regarding the genitourinary system. EENT: No signs and/or symptoms were reported regarding the EENT system. Derm: No signs and/or symptoms reported regarding the dermatologic system. Musculoskeletal: Reports pain in neck and right anterior aspect of neck and right lateral aspect of neck and right posterior aspect of neck. 10:11 Reassessment: Patient appears in no apparent distress at this time. Patient and/or tw2 family updated on plan of care and expected duration. Pain level reassessed. Patient is alert, oriented x 3, equal unlabored respirations, skin warm/dry/pink. Vital Signs: 09:15 BP 109 / 69; Pulse 75; Resp 18; Pulse Ox 100% ; Weight 53.07 kg; Height 5 ft. 1 in. sv (154.94 cm); Pain 1010; 09:15 Body Mass Index 22.11 (53.07 kg, 154.94 cm) sv ED Course: 09:13 Patient arrived in ED. rg4 09:15 Triage completed. sv 09:16 Arm band placed on Patient placed in an exam room, on a stretcher. sv 09:18 Katelin Mcdonald, RN is Primary Nurse. tw2 09:18 Bed in low position. Call light in reach. tw2 09:27 [facility]C [facility] kb 09:27 Violet Tolliver MD is Attending Physician. kb 10:03 Urine collected: clean catch specimen, clear. mh5 10:04 Urine --Ancillary (enter results) Sent. mh5 10:04 Urine Dipstick--Ancillary (enter results) Sent. mh5 10:11 No provider procedures requiring assistance completed. Patient did not have IV access tw2 during this emergency room visit. Administered Medications: 09:53 Drug: TORadol 60 mg Route: IM; Site: right gluteus; tw2 10:11 Follow up: Response: No adverse reaction; Pain is decreased tw2 Outcome: 09:43 Discharge ordered by MD. guidry 10:11 Discharged to home ambulatory. tw2 10:11 Condition: stable 10:11 Discharge instructions given to patient, Instructed on discharge instructions, follow up and referral plans. no drinking with medication, no driving heavy equipment, medication usage, Demonstrated understanding of instructions, follow-up care, medications, Prescriptions given X 2. 10:12 Patient left the ED. tw2 Signatures: Na Thacker, RESOURCE CENTER TEACHER-C RESOURCE CENTER TEACHER-Mahi Harrell, RN RN Katelin Christopher RN RN 2 Magda Grajeda [facility] Carol Ann Viera [facility] Corrections: (The following items were deleted from the chart) 09:17 09:15 Pulse 75bpm; Resp 18bpm; Pulse Ox 100%; 53.07 kg; Height 5 ft. 1 in.; BMI: 22.1; sv Pain 08/07; sv
--- NOTE | 2018-11-25 09:43 | EDPHYS ---
Physician Documentation [facility] Name: Patsy Gupta Age: 23 yrs Sex: Female : 1995 Arrival Date: 11/25/2018 Time: 09:13 Bed 17 Private MD: ED Physician Violet Tolliver HPI: 11/25 09:35 This 23 yrs old Female presents to ER via Ambulatory with complaints of Neck kb Pain, <24hrs Old, Arm Pain. 09:35 The patient or guardian complains of decreased range of motion, pain, that is acute, kb tenderness. The symptoms are located on the right posterior aspect of neck and right lateral aspect of neck. Onset: The symptoms/episode began/occurred 2 day(s) ago. Context: The problem was sustained at home, The neck injury/problem resulted from woke up with the pain. Associated signs and symptoms: The patient has no apparent associated signs or symptoms, The patient denies any alcohol use. The patient is not apparently intoxicated. No neurological symptoms were experienced by the patient prior to arrival in the emergency department. The pain radiates to the right arm. Modifying factors: The symptoms are alleviated by nothing. the symptoms are aggravated by movement, pressure. Severity of symptoms: At their worst the symptoms were moderate, in the emergency department the symptoms are unchanged. The patient has not experienced similar symptoms in the past. The patient has not recently seen a physician. 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 tw2 Historical: - Allergies: 09:15 No Known Allergies; sv - Home Meds: 09:15 None [Active]; sv - PMHx: 09:15 None; sv - PSHx: 09:15 None; sv - Immunization history:: Flu vaccine is not up to date. - Social history:: Smoking status: Patient uses tobacco products, denies chronic smoking, but will smoke occasionally. - Ebola Screening: : No symptoms or risks identified at this time. ROS: 09:35 Constitutional: Negative for fever, chills, and weight loss, Cardiovascular: Negative kb for chest pain, palpitations, and edema, Respiratory: Negative for shortness of breath, cough, wheezing, and pleuritic chest pain, Abdomen/GI: Negative for abdominal pain, nausea, vomiting, diarrhea, and constipation, MS/Extremity: Negative for injury and deformity, Skin: Negative for injury, rash, and discoloration, Neuro: Negative for headache, weakness, numbness, tingling, and seizure. 09:35 Neck: Positive for pain with movement, tenderness, tightness. Exam: 09:42 Constitutional: This is a well developed, well nourished patient who is awake, alert, kb and in no acute distress. Head/Face: Normocephalic, atraumatic. Chest/axilla: Normal chest wall appearance and motion. Nontender with no deformity. No lesions are appreciated. Cardiovascular: Regular rate and rhythm with a normal S1 and S2. No gallops, murmurs, or rubs. Normal PMI, no JVD. No pulse deficits. Respiratory: Lungs have equal breath sounds bilaterally, clear to auscultation and percussion. No rales, rhonchi or wheezes noted. No increased work of breathing, no retractions or nasal flaring. Abdomen/GI: Soft, non-tender, with normal bowel sounds. No distension or tympany. No guarding or rebound. No evidence of tenderness throughout. Skin: Warm, dry with normal turgor. Normal color with no rashes, no lesions, and no evidence of cellulitis. MS/ Extremity: Pulses equal, no cyanosis. Neurovascular intact. Full, normal range of motion. Neuro: Awake and alert, GCS 15, oriented to person, place, time, and situation. Cranial nerves II-XII grossly intact. Motor strength 5/5 in all extremities. Sensory grossly intact. Cerebellar exam normal. Normal gait. 09:42 Neck: External neck: tenderness, that is moderate, of the right posterior aspect of neck and right lateral aspect of neck. Vital Signs: 09:15 BP 109 / 69; Pulse 75; Resp 18; Pulse Ox 100% ; Weight 53.07 kg; Height 5 ft. 1 in. sv (154.94 cm); Pain 10/10; 09:15 Body Mass Index 22.11 (53.07 kg, 154.94 cm) sv MDM: 09:27 Patient medically screened. kb 09:34 Data reviewed: vital signs, nurses notes. Data interpreted: Pulse oximetry: on room air kb is 100 %. Interpretation: normal. Counseling: I had a detailed discussion with the patient and/or guardian regarding: the historical points, exam findings, and any diagnostic results supporting the discharge/admit diagnosis, the need for outpatient follow up, a family practitioner, to return to the emergency department if symptoms worsen or persist or if there are any questions or concerns that arise at home. 11/25 09:51 Order name: Urine Dipstick--Ancillary (enter results) bd 11/25 09:51 Order name: Urine --Ancillary (enter results) bd Administered Medications: 09:53 Drug: TORadol 60 mg Route: IM; Site: right gluteus; tw2 10:11 Follow up: Response: No adverse reaction; Pain is decreased tw2 Disposition: 17:43 Co-signature as Attending Physician, Violet Tolliver MD. ma2 Disposition: 11/25/18 09:43 Discharged to Home. Impression: Torticollis. - Condition is Stable. - Discharge Instructions: Acute Torticollis, Adult. - Prescriptions for Cyclobenzaprine 10 mg Oral Tablet - take 1 tablet by ORAL route every 8 hours As needed; 21 tablet. Diclofenac Sodium 75 mg Oral Tablet, Delayed Release (E.C.) - take 1 tablet by ORAL route 2 times per day As needed; 30 tablet. - Medication Reconciliation Form, Thank You Letter, Antibiotic Education, Prescription Opioid Use, Work release form form. - Follow up: Emergency Department; When: As needed; Reason: Worsening of condition. Follow up: Private Physician; When: 2 - 3 days; Reason: Recheck today's complaints, Continuance of care, Re-evaluation by your physician. Signatures: Dispatcher [employer] EDNa Navarro, Mahi Mullins RN RN Katelin Mcdonald RN RN [facility] Violet Tolliver MD MD [facility] Corrections: (The following items were deleted from the chart) 10:12 09:43 11/25/2018 09:43 Discharged to Home. Impression: Torticollis. Condition is tw2 Stable. Discharge Instructions: Acute Torticollis, Adult. Prescriptions for Cyclobenzaprine 10 mg Oral Tablet - take 1 tablet by ORAL route every 8 hours As needed; 21 tablet, Diclofenac Sodium 75 mg Oral Tablet, Delayed Release (E.C.) - take 1 tablet by ORAL route 2 times per day As needed; 30 tablet. and Forms are Medication Reconciliation Form, Thank You Letter, Antibiotic Education, Prescription Opioid Use. Follow up: Emergency Department; When: As needed; Reason: Worsening of condition. Follow up: Private Physician; When: 2 - 3 days; Reason: Recheck today's complaints, Continuance of care, Re-evaluation by your physician. kb
[2018-11-25] MEDS ORDERED: KETOROLAC 30 MG/ML INJ ONE (10:00)
[2018-11-25 10:27] VITALS: BP 109/69; O2SAT 100
[2018-11-25] MEDS ORDERED: CEPHALEXIN 250 MG CAP ONE (12:00)
[2018-11-25 16:32] LABS: Urine Blood NEGATIVE (NEG); Urine Glucose NEGATIVE (NEG); Urine Protein NEGATIVE (NEG); Urine Specific Gravity 1.025 (1.005-1.030); Urine pH 5.5 (5.0-7.0)
== END 2018-11-25 10:12 | disposition home or self-care (01) ==
LOC: ER 09:11
DX: M43.6 Torticollis (principal); Z72.0 Tobacco use
CPT/HCPCS: 81003; 81025; 96372; 99283

== ENCOUNTER 2019-05-14 20:02 | Emergency (ER) | payer OTHER, SELFPAY ==
--- OUTSIDE RECORDS SUMMARY | 2019-05-14 20:04 | XMS REPORT | Encounter Summary ---
:1995 Author Care Team Providers Name Role Phone Ankush Mackenzie Crop Duster Helper [phone] Reason for Visit Nurse Visit Instructions 1. Urine test positive test, urine 2. screening CBC w/ auto diff HIV (1+2) Ab screen, serum culture, urine abo group + rh type, blood HBsAg (hepatitis B surface Ag), serum rubella Ab, titer, serum RPR (rapid plasma reagin), serum antibody screen, serum or plasma urinalysis, dipstick 3. Mild hyperemesis-not delivered Reglan 10 mg tablet US, obstetric, transvaginal 4. Recurrent urinary tract infection Discussion Note: None recorded.Patient educational handouts: No information available. Plan of Care Reminders Provider Appointments OB Follow up Ankush Mackenzie, 06/04/2019 10:30AM OB Sono Sonogram 06/04/2019 10:30AM Lab Test, In-House Results Urine 05/07/2019 CBC W/ Auto [place] Diff 05/07/2019 [facility] (Lab) HIV (1+2) Ab [place] Screen, Serum 05/07/2019 [facility] (Lab) Culture, Urine [place] 05/07/2019 [facility] (Lab) Abo Group + Rh [place] Type, Blood 05/07/2019 [facility] (Lab) HBsAg [place] (Hepatitis B Surface Ag), 05/07/2019 [facility] Serum [place] (Lab) Rubella Ab, [place] Titer, Serum 05/07/2019 [facility] (Lab) RPR (Rapid [place] Plasma Reagin), Serum 05/07/2019 [facility] (Lab) Antibody [place] Screen, Serum or Plasma 05/07/2019 [facility] (Lab) Urinalysis, In-House Results Dipstick 05/07/2019 Referral None recorded. Procedures None recorded. Surgeries None recorded. Imaging US, Obstetric, In-House Results Transvaginal 05/07/2019 Medications Name Start Date Reglan 10 mg tablet Take 1 tablet 4 times a day by oral route. Medications Administered None recorded. Vitals Height Weight BMI Blood Pressure 5 ft 1 in 127.3 lbs 24.1 kg/m2 109/77 mm[Hg] Lab Results Date Name Specimen Result Interpretation Description Value Range Status Address 05/07/2019 Urinalysis, Leukocytes Negative In-House Dipstick Results: For Internal Use Only Nitrite negative In-House Results: For Internal Use Only Urobilinogen .2 In-House Results: For Internal Use Only Protein Negative In-House Results: For Internal Use Only Ph 7.5 In-House Results: For Internal Use Only Blood Negative In-House Results: For Internal Use Only Specific 1.020 In-House [place] Results: For Internal Use Only Ketone Negative In-House Results: For Internal Use Only Bilirubin Negative In-House Results: For Internal Use Only Glucose Negative In-House Results: For Internal Use Only Appearance Slightly In-House Cloudy Results: For Internal Use Only Color Yellow In-House Results: For Internal Use Only 05/07/2019 Test, Urine Test positive In- House Urine Results: For Internal Use Only US, Obstetric, No observation In-House Transvaginal recorded. Results: For Internal Use Only Allergies Code Code System Name Reaction Severity Status Onset NKDA Problems Name Status Onset Date Source Active 05/07/2019 Otitis Media Active External Constipation Active External Acute Cystitis Active Recurrent Urinary Tract Infection Active Depression Active Vaginal Delivery Active External Episiotomy Infection Active Hip Pain Active External Backache Active External Chest Wall Pain Active External Procedures Date Name Performed by 05/07/2019 US, Obstetric, Transvaginal In-House Results For Internal Use Only [id number] Vaccine List None recorded. Social History Smoking Status Never Smoker Past Encounters 05/07/2019 Urine Test Positive; Screening; Mild Hyperemesis-not Delivered; Recurrent Urinary Tract Infection Ankush Mackenzie MD: [address] [facility], [address], [place] [address], Ph. [phone] History of Present Illness None recorded. 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 Reported By: Patient Constitutional: Constitutional: no fatigue, no fever, no significant weight gain, no significant weight loss Skin: Skin: no abnormal moles, no rashes Eyes: Eyes: no irritation, no vision changes ENMT: ENMT: no hearing loss, no ear pain, no nose/sinus problems, no sore throat, no snoring, no dry mouth, no mouth ulcers Respiratory: Respiratory: no dyspnea / shortness of breath, no cough, no sputum production, no hemoptysis, no wheezing Cardiovascular: Cardiovascular: no chest pain, no palpitations, no orthopnea Gastrointestinal: Gastrointestinal: no heartburn, no dysphagia, no abdominal pain, no bowel movement changes, no diarrhea, no constipation, no rectal bleeding, nausea, vomiting Genitourinary: Genitourinary: no hematuria, no abnormal bleeding, no flank pain, no trouble urinating, no incontinence, no rash, no lesion, no discharge, no vaginal odor, no vaginal itching Endocrine: Menstrual: no menstrual problems, no PMDD symptoms. Menopausal: no menopausal symptoms. Sexual: no sexual problems Musculoskeletal: Musculoskeletal: no muscle aches, no muscle weakness, no arthralgias/joint pain, no back pain Neurological: Neurologic: no headaches, no dizziness, no LOC, no weakness, no numbness, no seizures Psychological: Psych: no depression, no alcoholism, no sleep disturbances Physical Exam None recorded.
[2019-05-14 21:20] LABS: Absolute Lymphocytes (CBC) 1.6 K/uL (0.7-4.9); Basophils % 0.2 % (0-1.3); Eosinophils % 0.3 % (0-4.4); Hematocrit 39.5 % (36.0-45.0); Lymphocytes % 15.8 % (15.3-44.8); MPV 8.6 fL (7.6-11.3); Monocytes % 4.5 % (3.3-12.3); RBC Red Blood Cell Count 4.39 M/uL (3.86-4.86)
[2019-05-14 21:31] LABS: BUN Blood Urea Nitrogen 15 mg/dL (7-18); Bicarbonate 23 mmol/L (21-32); Glucose Level 79 mg/dL (74-106); Potassium 3.5 mmol/L (3.5-5.1); Sodium Level 137 mmol/L (136-145)
--- NOTE | 2019-05-14 21:33 | RAD REPORT ---
EXAM DESCRIPTION: US - Abdomen Exam Limited - 05/14/2019 9:28 pm CLINICAL HISTORY: ABD PAIN COMPARISON: <Comparisons> FINDINGS: The gallbladder demonstrates no gallstones. No pericholecystic fluid or gallbladder wall t hickening. The common bile duct is normal measuring 2 mm. The liver demonstrates no findings of intrahepatic biliary dilatation. IMPRESSION: Unremarkable examination.
--- NOTE | 2019-05-14 21:38 | RAD REPORT ---
EXAM DESCRIPTION: US - 1St Trimest Single 1St Fetus - 05/14/2019 9:28 pm CLINICAL HISTORY: ABD CRAMPING, COMPARISON: 1St Trimest Single 1St Fetus dated 03/05/2018 FINDINGS: A single gestational sac is seen within the uterus. The shape of the sac is within normal limits for gestational age. Within the sac is a single pole with crown-rump length of 2.7 cm, c orrelating to estimated gestational age of 9 weeks 3 days. Estimated date of delivery is 12/14/2019. Heart rate is 166 BPM. The placenta is not yet developed due to early gestational age. 13 x 5 mm subchorionic bleed noted. The maternal adnexa and ovaries are within normal limits. Normal Doppler blood flow was demonstrated to both ovaries. IMPRESSION: Single live early intrauterine gestation with estimated gestational age of 9 weeks 3 day s, LYN 12/14/2019. 13 x 5 mm subchorionic bleed.
[2019-05-14 21:47] LABS: Urine Bacteria 20-50 /HPF (<20); Urine Culture Reflex Order REFLEXED
--- NOTE | 2019-05-14 21:48 | EDPHYS ---
Physician Documentation [facility] Name: Patsy Gupta Age: 24 yrs Sex: Female : 1995 Arrival Date: 05/14/2019 Time: 20:05 Bed 20 Private MD: Snow Ni ED Physician Chai Eddy HPI: 05/14 21:06 This 24 yrs old Female presents to ER via Ambulatory with complaints of snw Vaginal Bleeding, + Preg <12wks. 21:06 The patient presents with vaginal bleeding that is light. Onset: The symptoms/episode snw began/occurred suddenly, this morning. Modifying factors: The symptoms are alleviated by nothing. Associated signs and symptoms: Pertinent positives: upper abd cramping. Severity of symptoms: At their worst the symptoms were moderate. The patient is sexually active. The patient has not experienced similar symptoms in the past. The patient has not recently seen a physician, sees OB in [place]. Pt noted to have subconjunctival hemorrhage to right. When asked what happened pt states, "there was an incident". Pt denies trauma to abdomen. [employer]: 21:06 2, Full Term 1 snw Historical: - Allergies: 20:28 No Known Allergies; aj - Home Meds: 20:28 None [Active]; aj - PMHx: 20:28 None; aj - PSHx: 20:28 None; aj - Immunization history:: Adult Immunizations up to date. - Social history:: Smoking status: Patient/guardian denies using tobacco. - Ebola Screening: : Patient negative for fever greater than or equal to 101.5 degrees Fahrenheit, and additional compatible Ebola Virus Disease symptoms Patient denies exposure to infectious person Patient denies travel to an Ebola-affected area in the 21 days before illness onset No symptoms or risks identified at this time. ROS: 21:04 Constitutional: Negative for fever, chills, and weight loss, Eyes: Negative for injury, snw pain, redness, and discharge, ENT: Negative for injury, pain, and discharge, Neck: Negative for injury, pain, and swelling, Cardiovascular: Negative for chest pain, palpitations, and edema, Respiratory: Negative for shortness of breath, cough, wheezing, and pleuritic chest pain, Back: Negative for injury and pain, MS/Extremity: Negative for injury and deformity, Skin: Negative for injury, rash, and discoloration, Neuro: Negative for headache, weakness, numbness, tingling, and seizure. 21:04 Abdomen/GI: Positive for abdominal pain, abdominal cramps. 21:04 : Positive for vaginal bleeding. Exam: 21:04 Constitutional: This is a well developed, well nourished patient who is awake, alert, snw and in no acute distress. Head/Face: Normocephalic, atraumatic. Eyes: Pupils equal round and reactive to light, extra-ocular motions intact. Lids and lashes normal. Conjunctiva and sclera are non-icteric and not injected. Cornea within normal limits. Periorbital areas with no swelling, redness, or edema. ENT: Nares patent. No nasal discharge, no septal abnormalities noted. Tympanic membranes are normal and external auditory canals are clear. Oropharynx with no redness, swelling, or masses, exudates, or evidence of obstruction, uvula midline. Mucous membranes moist. Neck: Trachea midline, no thyromegaly or masses palpated, and no cervical lymphadenopathy. Supple, full range of motion without nuchal rigidity, or vertebral point tenderness. No Meningismus. Chest/axilla: Normal chest wall appearance and motion. Nontender with no deformity. No lesions are appreciated. Cardiovascular: Regular rate and rhythm with a normal S1 and S2. No gallops, murmurs, or rubs. Normal PMI, no JVD. No pulse deficits. Respiratory: Lungs have equal breath sounds bilaterally, clear to auscultation and percussion. No rales, rhonchi or wheezes noted. No increased work of breathing, no retractions or nasal flaring. Back: No spinal tenderness. No costovertebral tenderness. Full range of motion. Skin: Warm, dry with normal turgor. Normal color with no rashes, no lesions, and no evidence of cellulitis. MS/ Extremity: Pulses equal, no cyanosis. Neurovascular intact. Full, normal range of motion. Neuro: Awake and alert, GCS 15, oriented to person, place, time, and situation. Cranial nerves II-XII grossly intact. Motor strength 5/5 in all extremities. Sensory grossly intact. Cerebellar exam normal. Normal gait. Psych: Awake, alert, with orientation to person, place and time. Behavior, mood, and affect are within normal limits. 21:04 Eyes: Pupils equal round and reactive to light, extra-ocular motions intact. Lids and lashes normal. Conjunctiva and sclera are non-icteric and not injected. + right subconjunctival hemorrhage noted. Cornea within normal limits. Periorbital areas with no swelling, redness, or edema. 21:04 Abdomen/GI: Inspection: gravid appearance, is noted, Bowel sounds: normal, Palpation: mild abdominal tenderness, in the right upper quadrant and left upper quadrant. Vital Signs: 20:28 BP 104 / 65; Pulse 66; Resp 16; Temp 98.5; Pulse Ox 100% on R/A; Weight 58.06 kg; aj Height 5 ft. 1 in. (154.94 cm); 20:38 BP 118 / 77; Pulse 86; Resp 18; Pulse Ox 97% on R/A; tl2 21:42 BP 112 / 63; Pulse 71; Resp 18; Pulse Ox 100% ; tl2 22:22 BP 119 / 61; Pulse 75; Resp 18; Pulse Ox 99% on R/A; tl2 20:28 Body Mass Index 24.19 (58.06 kg, 154.94 cm) aj MDM: 20:31 Patient medically screened. snw 21:54 Data reviewed: vital signs, nurses notes. Data interpreted: Pulse oximetry: on room air snw is 100 %. Interpretation: normal. Counseling: I had a detailed discussion with the patient and/or guardian regarding: the historical points, exam findings, and any diagnostic results supporting the discharge/admit diagnosis, lab results, radiology results, the need for outpatient follow up, to return to the emergency department if symptoms worsen or persist or if there are any questions or concerns that arise at home. Special discussion: Based on the history and exam findings, there is no indication for further emergent testing or inpatient evaluation. I discussed with the patient/guardian the need to see the OB Gyne specialist for further evaluation of the symptoms. I discussed with the patient/guardian the need to see the primary care provider for further evaluation of the symptoms. 05/14 20:41 Order name: Urine Microscopic Only; Complete Time: 21:52 tl2 05/14 20:48 Order name: Abo/rh Typing; Complete Time: 21:38 snw 05/14 20:48 Order name: Basic Metabolic Panel; Complete Time: 21:32 snw 05/14 20:48 Order name: CBC with Diff; Complete Time: 21:24 snw 05/14 21:00 Order name: US Abdomen Limited; Complete Time: 21:38 snw 05/14 21:50 Order name: Urine Culture EDDE 05/14 20:41 Order name: Urine Test (obtain specimen); Complete Time: 20:41 tl2 05/14 20:41 Order name: Urine Dipstick-Ancillary (obtain specimen); Complete Time: 20:41 tl2 05/14 20:48 Order name: Labs collected and sent; Complete Time: 21:07 snw 05/14 20:48 Order name: NPO; Complete Time: 20:54 snw 05/14 21:29 Order name: 1St Trimest Single 1St Fetus; Complete Time: 21:46 EDMS Administered Medications: 22:01 Drug: Macrobid 100 mg Route: PO; tl2 22:20 Follow up: Response: No adverse reaction; Medication administered at discharge. tl2 Disposition: 05/15 00:38 Co-signature as Attending Physician, Chai Eddy MD. [email or web address] Disposition: 05/14/19 21:47 Discharged to Home. Impression: Threatened . - Condition is Stable. - Discharge Instructions: Threatened Miscarriage, Vaginal Bleeding During , First Trimester, Subchorionic Hematoma, First Trimester of , and Urinary Tract Infection, Pelvic Rest. - Prescriptions for Vitamin 27- 0.8 mg Oral Tablet - take 1 tablet by ORAL route once daily; 60 tablet. Macrobid 100 mg Oral Capsule - take 1 capsule by ORAL route every 12 hours for 7 days; 14 capsule. - Medication Reconciliation Form, Thank You Letter, Antibiotic Education, Prescription Opioid Use, Work release form form. - Follow up: Snow Ni MD; When: 1 - 2 days; Reason: Recheck today's complaints, Continuance of care, Re-evaluation by your physician. Follow up: Emergency Department; When: As needed; Reason: Worsening of condition. Signatures: Dispatcher [employer] EDKaryn Robledo RN RN aj Lam, Pin, MD MD pkl Nicolette Can, DUST MOP MAKER-C DUST MOP MAKER-Csnw Ladonna Ruby RN RN tl2 Corrections: (The following items were deleted from the chart) 07/17 20:17 20:16 Allergies: tramadol; aj aj 20:16 Immunization history: Adult Immunizations up to date, aj aj 20:16 Social history: Smoking status: Patient uses tobacco products, smokes one-half aj pack cigarettes per day, aj 20:16 Ebola Screening: Patient negative for fever greater than or equal to 101.5 aj degrees Fahrenheit, and additional compatible Ebola Virus Disease symptoms Patient denies exposure to infectious person Patient denies travel to an Ebola-affected area in the 21 days before illness onset No symptoms or risks identified at this time aj 20:16 Allergies: Demerol; aj aj 20:16 Allergies: Codeine; aj aj 20:16 Allergies: Motrin; aj aj 20:16 Home Meds: lisinopril 20 mg Oral tab 1 tab once daily; aj aj 20:16 PMHx: Hypertension; aj aj 20:16 PMHx: Chronic pain; aj aj 20:16 PMHx: Arthritis; aj aj 20:16 PSHx: neck; aj aj :29 21:01 Transvaginal Ob+US.RAD.BRZ ordered. EDMS EDMS 22:21 20:48 IV Saline Lock ordered. snw tl2 22:23 21:47 05/14/2019 21:47 Discharged to Home. Impression: Threatened . Condition tl2 is Stable. Forms are Medication Reconciliation Form, Thank You Letter, Antibiotic Education, Prescription Opioid Use. Follow up: Snow Ni; When: 1 - 2 days; Reason: Recheck today's complaints, Continuance of care, Re-evaluation by your physician. Follow up: Emergency Department; When: As needed; Reason: Worsening of condition. snw
--- NOTE | 2019-05-14 21:48 | ER ---
Nurse's Notes [facility] Name: Patsy Gupta Age: 24 yrs Sex: Female : 1995 Arrival Date: 05/14/2019 Time: 20:05 Bed 20 Private MD: Snow Ni Diagnosis: Threatened Presentation: 05/14 20:26 Presenting complaint: Patient states: Blood in toilet after urinated today. Patient DX aj with UTI but has not gotten RX called in. Transition of care: patient was not received from another setting of care. Onset of symptoms was May 14, 2019. Risk Assessment: Do you want to hurt yourself or someone else? Patient reports no desire to harm self or others. Initial Sepsis Screen: Does the patient meet any 2 criteria? No. Patient's initial sepsis screen is negative. Does the patient have a suspected source of infection? No. Patient's initial sepsis screen is negative. Care prior to arrival: None. 20:26 Method Of Arrival: Ambulatory aj 20:26 Acuity: EMIR 3 aj Triage Assessment: 20:28 General: Appears in no apparent distress. comfortable, Behavior is calm, cooperative, aj appropriate for age. Pain: Denies pain. Neuro: Level of Consciousness is awake, alert, obeys commands, Oriented to person, place, time, situation, Appropriate for age. Respiratory: Airway is patent Respiratory effort is even, unlabored, Respiratory pattern is regular, symmetrical. : Reports foul smelling urine. Derm: Skin is intact, is healthy with good turgor, Skin is pink, warm \T\ dry. normal. 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 - Social history:: Smoking status: Patient/guardian denies using tobacco. - Ebola Screening: : Patient negative for fever greater than or equal to 101.5 degrees Fahrenheit, and additional compatible Ebola Virus Disease symptoms Patient denies exposure to infectious person Patient denies travel to an Ebola-affected area in the 21 days before illness onset No symptoms or risks identified at this time. Screenin:38 Abuse screen: Denies threats or abuse. Nutritional screening: No deficits noted. tl2 Tuberculosis screening: No symptoms or risk factors identified. Fall Risk None identified. Assessment: 20:38 General: Appears in no apparent distress. uncomfortable, Behavior is calm, cooperative, tl2 appropriate for age. General: Pt reports having pyelo in the past during but is not experiencing the same symptoms at this time. Pt states that she is having a small amount of vaginal bleeding . Pain: Complains of pain in abdomen. Neuro: Level of Consciousness is awake, alert, obeys commands, Oriented to person, place, time, situation. Respiratory: Airway is patent Respiratory effort is even, unlabored, Respiratory pattern is regular, symmetrical. GI: Reports lower abdominal pain, cramping. : Reports burning with urination, urinary frequency, vaginal bleeding that is bright red, light flow. Derm: Skin is pink, warm \T\ dry. 21:30 Reassessment: Patient appears in no apparent distress at this time. Patient and/or tl2 family updated on plan of care and expected duration. Pain level reassessed. Patient is alert, oriented x 3, equal unlabored respirations, skin warm/dry/pink. 22:21 Reassessment: Patient appears in no apparent distress at this time. Patient and/or tl2 family updated on plan of care and expected duration. Pain level reassessed. Patient is alert, oriented x 3, equal unlabored respirations, skin warm/dry/pink. pt verbalized understanding of discharge instructions, need for follow up and prescription usage. Vital Signs: 20:28 BP 104 / 65; Pulse 66; Resp 16; Temp 98.5; Pulse Ox 100% on R/A; Weight 58.06 kg; aj Height 5 ft. 1 in. (154.94 cm); 20:38 BP 118 / 77; Pulse 86; Resp 18; Pulse Ox 97% on R/A; tl2 21:42 BP 112 / 63; Pulse 71; Resp 18; Pulse Ox 100% ; tl2 22:22 BP 119 / 61; Pulse 75; Resp 18; Pulse Ox 99% on R/A; tl2 20:28 Body Mass Index 24.19 (58.06 kg, 154.94 cm) ED Course: 20:05 Patient arrived in ED. ag3 20:05 Snow Ni MD is Private Physician. ag3 20:05 Nicolette Can F[facility]-C [facility]. snw 20:05 Chai Eddy MD is Attending Physician. snw 20:15 Triage completed. aj 20:28 Arm band placed on right wrist. Patient placed in an exam room. aj 20:31 Ladonna Ruby, RN is Primary Nurse. tl2 20:38 Patient has correct armband on for positive identification. Bed in low position. Call tl2 light in reach. Side rails up X 1. 20:38 Urine collected: clean catch specimen, mónica colored. tl2 21:29 US Abdomen Limited In Process Unspecified. EDMS 21:29 [address] Trimest Single 1St Fetus In Process Unspecified. EDMS 21:47 Snow Ni MD is Referral Physician. snw Administered Medications: 22:01 Drug: Macrobid 100 mg Route: PO; tl2 22:20 Follow up: Response: No adverse reaction; Medication administered at discharge. tl2 Outcome: 21:47 Discharge ordered by . snw 22:23 Patient left the ED. tl2 Signatures: Dispatcher [employer] EDKaryn Robledo RN RN Nicolette Harding FNP-C CHIEF STATION ENGINEER-Csnw Ladonna Ruby RN RN tl2 Katie Manzano ag3 Corrections: (The following items were deleted from the chart) 20:17 20:16 Allergies: tramadol; aj aj 20:17 20:16 Immunization history: Adult Immunizations up to date, aj aj 20:17 20:16 Social history: Smoking status: Patient uses tobacco products, smokes one-half aj pack cigarettes per day, aj 20:17 20:16 Ebola Screening: Patient negative for fever greater than or equal to 101.5 aj degrees Fahrenheit, and additional compatible Ebola Virus Disease symptoms Patient denies exposure to infectious person Patient denies travel to an Ebola-affected area in the 21 days before illness onset No symptoms or risks identified at this time aj 20:18 20:14 Presenting complaint: Patient states: Dizziness, palpitations, chest pain that aj started today aj 20:18 20:14 Transition of care: patient was not received from another setting of care. aj aj 20:18 20:14 Onset of symptoms was May 14, 2019 aj aj 20:18 20:14 Risk Assessment: Do you want to hurt yourself or someone else? Patient reports no aj desire to harm self or others. : 20:14 Initial Sepsis Screen: Does the patient meet any 2 criteria? No. Patient's aj initial sepsis screen is negative. Does the patient have a suspected source of infection? No. Patient's initial sepsis screen is negative. : 20:14 Care prior to arrival: None. aj 20:14 Method Of Arrival: Wheelchair aj 20:14 Acuity: EMIR 3 aj 20:16 Allergies: Demerol; aj 20:16 Allergies: Codeine; aj 20:16 Allergies: Motrin; aj 20:16 Home Meds: lisinopril 20 mg Oral tab 1 tab once daily; aj 20:16 PMHx: Hypertension; aj 20:16 PMHx: Chronic pain; aj 20:16 PMHx: Arthritis; aj 20:16 PSHx: neck; aj 22:21 Reassessment: Patient appears in no apparent distress at this time. Patient tl2 and/or family updated on plan of care and expected duration. Pain level reassessed. Patient is alert, oriented x 3, equal unlabored respirations, skin warm/dry/pink. tl2 22:22 21:30 BP 119 / 61; Pulse 75bpm; Resp 18bpm; Pulse Ox 99% RA; tl2 tl2
[2019-05-14] MEDS ORDERED: NITROFURAN MACRO 100 MG CAP PO ONE (22:16)
[2019-05-14 22:37] VITALS: TEMP 98.5
[2019-05-14 22:41] VITALS: BP 119/61; O2SAT 99
== END 2019-05-14 22:23 | disposition home or self-care (01) ==
LOC: ER 20:02
DX: O20.0 Threatened abortion (principal); Z3A.09 9 weeks gestation of pregnancy
CPT/HCPCS: 36415; 76705; 76801; 80048; 81015; 85025; 86900; 86901; 87086; 87088; 99283

== ENCOUNTER 2019-08-04 13:21 | Emergency (ER) | payer OTHER ==
[2019-08-04 15:46] LABS: Absolute Lymphocytes (CBC) 1.7 K/uL (0.7-4.9); Basophils % 0.2 % (0-1.3); Hematocrit 33.5 % (36.0-45.0); Lymphocytes % 22.7 % (15.3-44.8); MPV 8.1 fL (7.6-11.3); RBC Red Blood Cell Count 3.73 M/uL (3.86-4.86)
[2019-08-04] MEDS ORDERED: MORPHINE 2 MG/ML SYR ONE (15:46)
--- NOTE | 2019-08-04 15:53 | RAD REPORT ---
EXAM DESCRIPTION: US - OB Limited - 08/04/2019 3:38 pm CLINICAL HISTORY: back and bilateral hip pain age. COMPARISON: OB Complete dated 05/23/2016 FINDINGS: A limited examination was requested by referring physician. A single variable presenting gestation is identified. Heart rate normal. Placenta is anterior without evidence of abruption or previa. Amniotic fluid volume is normal. Right ovary was obscured by bowel gas. The left ovary demonstrates n ormal blood flow. IMPRESSION: No acute or pathologic finding of concern seen on this limited examination. Consider ded icated second trimester follow-up obstetrical complete study.
[2019-08-04 15:56] LABS: Urine Blood NEGATIVE (NEG); Urine Glucose NEGATIVE (NEG); Urine Protein NEGATIVE (NEG); Urine Specific Gravity >1.030 (1.005-1.030)
[2019-08-04 16:04] LABS: BUN Blood Urea Nitrogen 12 mg/dL (7-18); Bicarbonate 24 mmol/L (21-32); Glucose Level 101 mg/dL (74-106); Potassium 3.6 mmol/L (3.5-5.1); Sodium Level 136 mmol/L (136-145)
[2019-08-04] MEDS ORDERED: NITROFURAN MACRO 100 MG CAP PO ONE (16:29)
--- NOTE | 2019-08-04 18:36 | RAD REPORT ---
EXAM DESCRIPTION: MRI - Thoracic Spine Wo Contr - 08/04/2019 6:02 pm CLINICAL HISTORY: hip pain Back pain, radiculopathy. COMPARISON: OB Limited dated 08/04/2019 FINDINGS: The vertebral body heights and disc spaces are maintained. Marrow pattern of the thoracic spine is within normal limits. No significant herniated disc, canal stenosis or foraminal stenosis at any level. No paraspinal mass or hematoma. The thoracic cord is normal in size and signal. IMPRESSION: Unremarkable study.
--- NOTE | 2019-08-04 18:41 | RAD REPORT ---
EXAM DESCRIPTION: MRI - Lumbar Spine Wo Con- 08/04/2019 6:18 pm CLINICAL HISTORY: PAIN Back pain, radiculopathy COMPARISON: No comparisons FINDINGS: Vertebral body heights are within normal limits. No aggressive marrow pattern is observed. No fracture is suspected. The conus medullaris terminates at a normal level. No thickening of the cauda equina or clumping of n erve roots seen. L1-2 level: No significant findings. L2-3 level: No significant findings. L3-4 level: No significant findings. L4-5 level: No significant findings. L5-S1 level: Mild posterior disc bulge. Hydronephrosis is present, greater on the right, likely related to ongoing . IMPRESSION: Minimal L5-S1 spondylosis.
--- NOTE | 2019-08-04 20:03 | ER ---
Nurse's Notes [facility] Name: Patsy Gupta Age: 24 yrs Sex: Female : 1995 Arrival Date: 08/04/2019 Time: 13:25 Bed 14 Private MD: Diagnosis: mid back pain, bilateral buttock pain, normal Presentation: 08/04 13:32 Presenting complaint: Patient states: bilateral hip pain, denies recent fall or injury. sv Reports being 5 months and vaginal discharge clear. Transition of care: patient was not received from another setting of care. Onset of symptoms was August 01, 2019. Risk Assessment: Do you want to hurt yourself or someone else? Patient reports no desire to harm self or others. Initial Sepsis Screen: Does the patient meet any 2 criteria? No. Patient's initial sepsis screen is negative. Does the patient have a suspected source of infection? No. Patient's initial sepsis screen is negative. Care prior to arrival: None. 13:32 Method Of Arrival: Ambulatory sv 13:32 Acuity: EMIR 4 sv Triage Assessment: 13:35 General: Appears in no apparent distress. uncomfortable, well developed, Behavior is sv cooperative, appropriate for age. Pain: Complains of pain in right and left hip Pain currently is 10 out of 10 on a pain scale. Neuro: Level of Consciousness is awake, alert, obeys commands, Gait is steady. Respiratory: Respiratory effort is even, unlabored. A P MECHANIC: 13:33 LMP 02/2019 sv Historical: - Allergies: 13:33 No Known Allergies; sv - PMHx: 13:33 None; sv - Ebola Screening: : No symptoms or risks identified at this time. Screenin:52 Abuse screen: Denies threats or abuse. Denies injuries from another. Nutritional bp screening: No deficits noted. Tuberculosis screening: No symptoms or risk factors identified. Fall Risk None identified. Assessment: 14:30 General: Appears in no apparent distress. uncomfortable, Behavior is cooperative, bp appropriate for age, anxious. Pain: Complains of pain in pelvis. Neuro: No deficits noted. Cardiovascular: No deficits noted. Respiratory: No deficits noted. GI: No signs and/or symptoms were reported involving the gastrointestinal system. : Reports pain in suprapubic area. EENT: No deficits noted. Derm: No deficits noted. Musculoskeletal: No deficits noted. 15:51 Reassessment: PT RETURNED FROM U/S. bp 17:19 Reassessment: Patient and/or family updated on plan of care and expected duration. Pain bp level reassessed. Patient is alert, oriented x 3, equal unlabored respirations, skin warm/dry/pink. MRI PENDING. 18:32 Reassessment: PT RETURNED FROM MRI. bp 19:28 Reassessment: Patient appears in no apparent distress at this time. Patient and/or aa1 family updated on plan of care and expected duration. Pain level reassessed. Patient is alert, oriented x 3, equal unlabored respirations, skin warm/dry/pink. Awaiting provider reassessment. 20:30 Reassessment: Patient appears in no apparent distress at this time. Patient is alert, aa1 oriented x 3, equal unlabored respirations, skin warm/dry/pink. Discussed d/c \T\ f/u instructions with pt; denies questions or concerns at this time. Ambulatory to lobby with steady gait. Patient states feeling better. Patient states symptoms have improved. Vital Signs: 13:34 BP 134 / 64; Pulse 100; Resp 20; Temp 98.6(O); Pulse Ox 100% ; Weight 63.05 kg; Height sv 5 ft. 2 in. (157.48 cm); Pain 10/10; 16:01 BP 101 / 54; Pulse 72; Resp 16; Pulse Ox 99% ; bp 17:19 BP 91 / 47; Pulse 64; Resp 16; Pulse Ox 100% ; bp 18:32 BP 95 / 56; Pulse 70; Resp 16; Pulse Ox 100% ; bp 19:28 BP 98 / 60; Pulse 81; Resp 16; Pulse Ox 98% on R/A; aa1 20:30 BP 102 / 61; Pulse 79; Resp 16; Temp 98.2; Pulse Ox 99% on R/A; Pain 4/10; aa1 13:34 Body Mass Index 25.42 (63.05 kg, 157.48 cm) sv ED Course: 13:25 Patient arrived in ED. mr 13:31 Arm band placed on. sv 13:32 Triage completed. sv 14:31 Ellis Gonzales MD is Attending Physician. kdr 14:37 James Francis, MATTHEW is Primary Nurse. bp 15:20 Inserted saline lock: 20 gauge in right antecubital area, using aseptic technique. bp Blood collected. 15:39 OB Limited In Process Unspecified. EDMS 15:52 Patient has correct armband on for positive identification. Bed in low position. Call bp light in reach. Side rails up X2. 18:03 MRI Lumbar Spine wo Con In Process Unspecified. EDMS 18:03 Thoracic Spine Wo Contr In Process Unspecified. EDMS 20:30 No provider procedures requiring assistance completed. IV discontinued, intact, aa1 bleeding controlled, No redness/swelling at site. Pressure dressing applied. Administered Medications: 15:50 Drug: morphine 2 mg Route: IVP; Site: right antecubital; bp 16:39 Follow up: Response: Pain is decreased bp 16:30 Drug: Nitrofurantoin 100 mg Route: PO; bp 19:05 Follow up: Response: No adverse reaction aa1 Outcome: 20:03 Discharge ordered by . kdr 20:30 Discharged to home ambulatory, with significant other. aa1 20:30 Condition: good 20:30 Discharge instructions given to patient, significant other, Instructed on discharge instructions, follow up and referral plans. medication usage, Demonstrated understanding of instructions, follow-up care, medications, Prescriptions given X 1. 20:33 Patient left the ED. aa1 Signatures: Dispatcher [employer] Mahi Collier RN RN sv Autenrieth, Alissa, RN RN aa1 Ellis Gonzales MD MD kdr Rivera, Mary mr Peltier, Brian, RN RN bp Corrections: (The following items were deleted from the chart) 13:34 13:32 Presenting complaint: Patient states: bilateral hip pain, denies recent fall or sv injury. sv
--- NOTE | 2019-08-04 20:03 | EDPHYS ---
Physician Documentation [facility] Name: Patsy Gupta Age: 24 yrs Sex: Female : 1995 Arrival Date: 08/04/2019 Time: 13:25 Bed 14 Private MD: ED Physician Ellis Gonzales HPI: 08/04 18:15 This 24 yrs old Female presents to ER via Ambulatory with complaints of Hip kdr Pain. 18:15 The patient or guardian reports pain. kdr 18:15 that occurred at home, sustained from unknown reason, There is no obvious deformity, kdr The patient is able to self ambulate. The patient is able to bear their full body weight. There is no radiation of the patient's discomfort. The complaints affect the left gluteus cole and right gluteus cole. Onset: The symptoms/episode began/occurred suddenly, this morning. Modifying factors: The symptoms are alleviated by nothing, remaining still, laying on her side, the symptoms are aggravated by any movement, extension. Associated signs and symptoms: Loss of consciousness: the patient experienced no loss of consciousness, Pertinent positives: Mid back pain - made worse by movement of legs. Severity of symptoms: At their worst the symptoms were severe, incapacitating, in the emergency department the symptoms are unchanged. The patient has not experienced similar symptoms in the past. The patient has been recently seen by a physician: the patient's primary care provider. DIRECTOR SPORTS: 13:33 LMP 02/2019 sv Historical: - Allergies: 13:33 No Known Allergies; sv - PMHx: 13:33 None; sv - Ebola Screening: : No symptoms or risks identified at this time. ROS: 18:15 Constitutional: Negative for fever, chills, and weight loss, Eyes: Negative for injury, kdr pain, redness, and discharge, ENT: Negative for injury, pain, and discharge, Neck: Negative for injury, pain, and swelling, Cardiovascular: Negative for chest pain, palpitations, and edema, Respiratory: Negative for shortness of breath, cough, wheezing, and pleuritic chest pain, Abdomen/GI: Negative for abdominal pain, nausea, vomiting, diarrhea, and constipation, : Negative for injury, bleeding, discharge, and swelling, Skin: Negative for injury, rash, and discoloration, Neuro: Negative for headache, weakness, numbness, tingling, and seizure activity. Psych: Negative for depression, anxiety, suicide ideation, homicidal ideation, and hallucinations, Allergy/Immunology: Negative for hives, rash, and allergies, Endocrine: Negative for neck swelling, polydipsia, polyuria, polyphagia, and marked weight changes, Hematologic/Lymphatic: Negative for swollen nodes, abnormal bleeding, and unusual bruising. 18:15 Back: Positive for decreased range of motion, pain at rest, pain with movement, of the , Negative for Exam: 18:15 Constitutional: This is a well developed, well nourished patient who is awake, alert, kdr and in moderate distress. Head/Face: Normocephalic, atraumatic. Eyes: Pupils equal round and reactive to light, extra-ocular motions intact. Lids and lashes normal. Conjunctiva and sclera are non-icteric and not injected. Cornea within normal limits. Periorbital areas with no swelling, redness, or edema. Neck: Trachea midline, no thyromegaly or masses palpated, and no cervical lymphadenopathy. Supple, full range of motion without nuchal rigidity, or vertebral point tenderness. No Meningismus. Chest/axilla: Normal chest wall appearance and motion. Nontender with no deformity. No lesions are appreciated. Cardiovascular: Regular rate and rhythm with a normal S1 and S2. No gallops, murmurs, or rubs. Normal PMI, no JVD. No pulse deficits. Respiratory: Lungs have equal breath sounds bilaterally, clear to auscultation and percussion. No rales, rhonchi or wheezes noted. No increased work of breathing, no retractions or nasal flaring. Abdomen/GI: Soft, non-tender, with normal bowel sounds. No distension or tympany. No guarding or rebound. No evidence of tenderness throughout. Skin: Warm, dry with normal turgor. Normal color with no rashes, no lesions, and no evidence of cellulitis. Neuro: Awake and alert, GCS 15, oriented to person, place, time, and situation. Cranial nerves II-XII grossly intact. Motor strength 5/5 in all extremities. Sensory grossly intact. Cerebellar exam normal. Normal gait. Psych: Awake, alert, with orientation to person, place and time. Behavior, mood, and affect are within normal limits. 18:15 Back: pain, that is mild, of the lumbar area, ROM is painful, normal spinal alignment noted, CVA tenderness, is absent, muscle spasm, is not present, Straight leg raises: pain bilaterally, No meningismus . Vital Signs: 13:34 BP 134 / 64; Pulse 100; Resp 20; Temp 98.6(O); Pulse Ox 100% ; Weight 63.05 kg; Height sv 5 ft. 2 in. (157.48 cm); Pain 10/10; 16:01 BP 101 / 54; Pulse 72; Resp 16; Pulse Ox 99% ; bp 17:19 BP 91 / 47; Pulse 64; Resp 16; Pulse Ox 100% ; bp 18:32 BP 95 / 56; Pulse 70; Resp 16; Pulse Ox 100% ; bp 19:28 BP 98 / 60; Pulse 81; Resp 16; Pulse Ox 98% on R/A; aa1 20:30 BP 102 / 61; Pulse 79; Resp 16; Temp 98.2; Pulse Ox 99% on R/A; Pain 4/10; aa1 13:34 Body Mass Index 25.42 (63.05 kg, 157.48 cm) sv MDM: 18:15 Data reviewed: vital signs, nurses notes, lab test result(s), radiologic studies. kdr Counseling: I had a detailed discussion with the patient and/or guardian regarding: the historical points, exam findings, and any diagnostic results supporting the discharge/admit diagnosis, lab results, radiology results. 20:03 Patient medically screened. kdr 08/04 14:53 Order name: CBC with Diff; Complete Time: 15:59 kdr 08/04 14:53 Order name: Chem 7; Complete Time: 16:12 kdr 08/04 14:53 Order name: Blood Culture Adult (2) kdr 08/04 14:53 Order name: Urine Culture kdr 08/04 14:55 Order name: ESR; Complete Time: 16:12 kdr 08/04 14:55 Order name: CRP; Complete Time: 16:12 kdr 08/04 15:03 Order name: OB Limited; Complete Time: 15:59 EDMS 08/04 15:33 Order name: Urine Dipstick--Ancillary (enter results); Complete Time: 15:59 bd 08/04 15:33 Order name: Urine --Ancillary (enter results); Complete Time: 15:59 bd 08/04 16:18 Order name: MRI Lumbar Spine wo Con; Complete Time: 19:58 kdr 08/04 16:21 Order name: Thoracic Spine Wo Contr; Complete Time: 19:58 EDMS 08/04 14:53 Order name: Urine Dipstick-Ancillary (obtain specimen); Complete Time: 15:24 kdr Administered Medications: 15:50 Drug: morphine 2 mg Route: IVP; Site: right antecubital; bp 16:39 Follow up: Response: Pain is decreased bp 16:30 Drug: Nitrofurantoin 100 mg Route: PO; bp 19:05 Follow up: Response: No adverse reaction aa1 Disposition: 08/04/19 20:03 Discharged to Home. Impression: mid back pain, bilateral buttock pain, normal . - Condition is Stable. - Discharge Instructions: Musculoskeletal Pain, Back Pain in , Second Trimester of , [id number]. - Prescriptions for Tylenol- Codeine #4 300-60 mg Oral Tablet - take 1 tablet by ORAL route every 6 hours As needed; 6 tablet. - Work release form, Medication Reconciliation Form, Thank You Letter, Prescription Opioid Use form. - Follow up: Private Physician; When: 2 - 3 days; Reason: If symptoms return, Further diagnostic work-up, Recheck today's complaints, Continuance of care, Re-evaluation by your physician. - Problem is new. - Symptoms have improved. Signatures: Dispatcher [employer] [facility] Mahi Lauren RN RN Chayito Zacarias RN RN aa1 Ellis Gonzales MD MD kdr Peltier, Brian, RN RN bp Corrections: (The following items were deleted from the chart) 15:03 14:56 Transvaginal Study (Probe)+[id number] ordered. [facility] 20:33 20:03 08/04/2019 20:03 Discharged to Home. Impression: mid back pain, bilateral buttock aa1 pain, normal . Condition is Stable. Forms are Medication Reconciliation Form, Thank You Letter, Antibiotic Education, Prescription Opioid Use. Follow up: Private Physician; When: 2 - 3 days; Reason: If symptoms return, Further diagnostic work-up, Recheck today's complaints, Continuance of care, Re-evaluation by your physician. Problem is new. Symptoms have improved. kdr
[2019-08-04 21:01] VITALS: TEMP 98.6
[2019-08-04 21:06] VITALS: BP 98/60; O2SAT 98
== END 2019-08-04 20:33 | disposition home or self-care (01) ==
LOC: ER 13:21
DX: O26.892 Other specified pregnancy related conditions, second trimester (principal); Z3A.20 20 weeks gestation of pregnancy
CPT/HCPCS: 87040 ×2; 87088; 85025; 87086; 80048; 36415; 81025; 85652; 81003; 86140; 72146; 72148; 76815; 96374; 99284; J2270

== ENCOUNTER 2019-12-20 06:11 | Emergency (ER) | payer OTHER ==
--- OUTSIDE RECORDS SUMMARY | 2019-12-20 06:14 | XMS REPORT | Encounter Summary ---
:1995 Author Care Team Providers Name Role Phone Ankush Mackenzie Certified Diabetes Educator [phone] Simi Wilson Nurse Practitioner [phone] Reason for Visit 3 hr gtt Instructions 1. Abnormal glucose tolerance test during - baby not yet delivered glucose tolerance test, 3-hour Discussion Note: None recorded.Patient educational handouts: No information available. Plan of Care Reminders Provider Appointments OB Sono Ankush Mackenzie, 10/16/2019 9:30AM OB Sono Sonogram 10/16/2019 9:30AM Lab Glucose In-House Results Tolerance Test, 3-Hour 09/24/2019 Referral None recorded. Procedures None recorded. Surgeries None recorded. Imaging None recorded. Medications Name Start Date Bactrim DS 800 mg-160 mg tablet Take 1 tablet twice a day by oral route for 5 days. rcyxuhyfie-ieihkujbadfwr-cnznkwrm 50 mg-325 mg-40 mg tablet TAKE ONE (1) TABLET(S) EVERY 4 HOURS BY MOUTH DAILY NEEDED. clindamycin HCl 300 mg capsule Take 1 capsule every 8 hours by oral route. ferrous gluconate 240 mg (27 mg iron) tablet Take 1 tablet every day by oral route. Macrobid 100 mg capsule Take 1 capsule twice a day by oral route for 5 days. nitrofurantoin macrocrystal 50 mg capsule Take 1 capsule every day by oral route in the evening. Reglan 10 mg tablet Take 1 tablet 4 times a day by oral route. Medications Administered None recorded. Vitals Height Weight BMI Blood Pressure 5 ft 1 in 143.8 lbs 27.2 kg/m2 114/82 mm[Hg] Results Lab Results Date Name Specimen Result Interpretation Description Value Range Status Address 09/24/2019 Glucose Blood Results passed In-House Tolerance capillary Results: Test, 3-Hour For Internal Use Only 09/18/2019 Glucose Results 149 In-House Tolerance Results: Test, 1-Hour For Internal Use Only 09/18/2019 Urinalysis, Leukocytes Negative In-House Dipstick Results: For Internal Use Only Nitrite negative In-House Results: For Internal Use Only Urobilinogen .2 In-House Results: For Internal Use Only Protein 30 In-House Results: For Internal Use Only Ph 7.0 In-House Results: For Internal Use Only Blood Negative In-House Results: For Internal Use Only Specific 1.020 In-House [place] Results: For Internal Use Only Ketone Negative In-House Results: For Internal Use Only Bilirubin Negative In-House Results: For Internal Use Only Glucose Negative In-House Results: For Internal Use Only Appearance Clear In-House Results: For Internal Use Only Color Yellow In-House Results: For Internal Use Only US, No observation In-House Obstetric, recorded. Results: 3Rd For Trimester Internal Use Only Allergies Code Code System Name Reaction Severity Status Onset NKDA Problems Name Status Onset Date Source Active 05/07/2019 Acute Cystitis in , Antepartum Active 05/14/2019 Acute Cervicitis Active 06/04/2019 History of Acute Renal Failure Active 06/04/2019 Generalized Headache Active 06/26/2019 Recurrent Urinary Tract Infection Active Procedures Date Name Performed by 09/18/2019 US, Obstetric, 3Rd Trimester In-House Results For Internal Use Only [address] Vaccine List None recorded. Social History Tobacco Smoking Status Never Smoker Past Encounters 09/24/2019 Abnormal Glucose Tolerance Test During - Baby Not Yet Delivered Ankush Mackenzie MD: [address] [address], Ph. [phone] 09/18/2019 Screening; Routine Care; Recurrent Urinary Tract Infection ; History of Acute Renal Failure; Abnormal Glucose Tolerance Test During - Baby Not Yet Delivered Ankush Mackenzie MD: [address] [address], Ph. [phone] History of Present Illness None recorded. Review of Systems None recorded. Physical Exam None recorded.
--- OUTSIDE RECORDS SUMMARY | 2019-12-20 06:14 | XMS REPORT | Encounter Summary ---
:1995 Author Care Team Providers Name Role Phone Ankush Mackenzie Junior Sales Representative [phone] Simi Wilson Nurse Practitioner [phone] Reason for Visit ob 28 week visit GAP Instructions 1. screening CBC w/ auto diff HIV (1+2) Ab screen, serum glucose tolerance test, 1-hour RPR (rapid plasma reagin), serum antibody screen, serum or plasma 2. Routine care urinalysis, dipstick US, obstetric, 3rd trimester 3. Recurrent urinary tract infection culture, urine 4. History of acute renal failure 5. Abnormal glucose tolerance test during - baby not yet delivered Discussion Note Discussed labor symptoms and expected movement. Encouraged adequate fluid intake and daily PNV and iron. Patient educational handouts: No information available. Plan of Care Reminders Provider Appointments 3 Hour Gtt Ankush Mackenzie, 09/24/2019 8:30AM OB Sono Ankush Mackenzie, 10/16/2019 9:30AM OB Sono Sonogram 10/16/2019 9:30AM Lab Urinalysis, In-House Results Dipstick 09/18/2019 CBC W/ Auto [place] Diff 09/18/2019 [facility] (Lab) HIV (1+2) Ab [place] Screen, Serum 09/18/2019 [facility] (Lab) Glucose In-House Results Tolerance Test, 1-Hour 09/18/2019 RPR (Rapid [place] Plasma Reagin), Serum 09/18/2019 [facility] (Lab) Antibody [place] Screen, Serum or Plasma 09/18/2019 [facility] (Lab) Culture, [place] Urine 09/18/2019 [facility] (Labs) (Xray) Referral None recorded. Procedures None recorded. Surgeries None recorded. Imaging US, In-House Results Obstetric, 3Rd 09/18/2019 Trimester Medications Name Start Date Bactrim DS 800 mg-160 mg tablet Take 1 tablet twice a day by oral route for 5 days. duffzsmryu-zmhwtgbengkaz-wgcokcmq 50 mg-325 mg-40 mg tablet TAKE ONE [...] BMI Blood Pressure 5 ft 1 in 144 lbs 27.2 kg/m2 116/57 mm[Hg] Results Lab Results Date Name Specimen Result Interpretation Description Value Range Status Address 09/18/2019 Glucose Results 149 In-House Tolerance Results: [...] For Internal Use Only Specific 1.020 In-House [place] Results: For Internal Use Only Ketone Negative In-House Results: For Internal Use Only Bilirubin Negative In-House Results: For Internal Use Only Glucose Negative In-House Results: For Internal Use Only Appearance Clear In-House Results: For Internal Use Only Color Yellow In-House Results: For Internal Use Only 08/21/2019 Culture, URINE Urine Culture, final Final [facility] Urine Routine report [facility]: [address] URINE Result 1 no growth Final [facility]: [address] 08/21/2019 Urinalysis, Leukocytes Negative In-House Dipstick Results: For Internal Use Only Nitrite negative In-House Results: For Internal Use Only Urobilinogen .2 In-House Results: For Internal Use Only Protein Negative In-House Results: For Internal Use Only Ph 7.0 In-House Results: For Internal Use Only Blood Negative In-House Results: For Internal Use Only Specific 1.025 In-House [place] Results: For Internal Use Only Ketone Negative [...] Trimester In-House Results For Internal Use Only [address] Vaccine List None recorded. Social History Tobacco Smoking Status Never Smoker Past Encounters 09/18/2019 Screening; Routine Care; Recurrent Urinary Tract Infection ; History of Acute Renal Failure; Abnormal Glucose Tolerance Test During - Baby Not Yet Delivered Ankush Mackenzie MD: [address] [address], Ph. [phone] 08/21/2019 Routine Care; Recurrent Urinary Tract Infection Ankush Mackenzie MD: [address] [address], Ph. [phone] History of Present Illness None recorded. Review of Systems None recorded. Physical Exam None recorded.
--- OUTSIDE RECORDS SUMMARY | 2019-12-20 06:15 | XMS REPORT | Encounter Summary ---
:1995 Author Care Team Providers Name Role Phone Ankush Mackenzie Registered Nurse Hh Case Manager [phone] Simi Wilson Nurse Practitioner [phone] Reason for Visit ob 32 week visit Instructions 1. Routine care US, obstetric, limited urinalysis, dipstick 2. Recurrent urinary tract infection culture, urine Bactrim DS 800 mg-160 mg tablet Discussion Note Discussed ultrasound findings. Discussed labor symptoms and expected movement. Encouraged adequate fluid intake and daily PNV and iron. Patient educational handouts: No information available. Plan of Care Reminders Provider Appointments OB Follow up Ankush Mackenzie MD 10/30/2019 2:30PM Lab Urinalysis, In-House Results Dipstick 10/16/2019 Culture, [facility] Urine 10/16/2019 [facility] (Labs[facility] (Xray) Referral None recorded. Procedures None recorded. Surgeries None recorded. Imaging US, In-House Results Obstetric, Limited 10/16/2019 Medications Name Start Date Bactrim DS 800 mg-160 mg tablet Take 1 tablet twice a day by oral route for 5 days. ipwdbcxkmk-dfabxbkgygkul-gdhydqam 50 mg-325 mg-40 mg tablet TAKE ONE [...] BMI Blood Pressure 5 ft 1 in 148.8 lbs 28.1 kg/m2 109/67 mm[Hg] Results Lab Results Date Name Specimen Result Interpretation Description Value Range Status Address 10/16/2019 Urinalysis, Leukocytes Small In-House Dipstick Results: For Internal Use Only Nitrite negative In-House Results: For Internal Use Only Urobilinogen .2 In-House Results: For Internal Use Only Protein 30 In-House Results: For Internal Use Only Ph 7.0 In-House Results: For Internal Use Only Blood Non-Hemoly In-House zed: Trace Results: For Internal Use Only Specific 1.025 In-House [place] Results: For Internal Use Only Ketone Negative In-House Results: For Internal Use Only Bilirubin Negative In-House Results: For Internal Use Only Glucose Negative In-House Results: For Internal Use Only Appearance Clear In-House Results: For Internal Use Only Color Yellow In-House Results: For Internal Use Only 09/24/2019 Glucose Blood Results passed In-House Tolerance [...] For Internal Use Only Specific 1.020 In-House [place] Results: For Internal Use Only Ketone Negative In-House Results: For Internal Use Only Bilirubin Negative In-House Results: For Internal Use Only Glucose Negative In-House Results: For Internal Use Only Appearance Clear In-House Results: For Internal Use Only Color Yellow In-House Results: For Internal Use Only US, Obstetric, No observation In-House Limited recorded. Results: For Internal Use Only US, Obstetric, No observation In-House 3Rd Trimester recorded. Results: For Internal Use Only Allergies [...] Trimester In-House Results For Internal Use Only [address] 10/16/2019 US, Obstetric, Limited In-House Results For Internal Use Only [address]8520 Vaccine List None recorded. Social History Tobacco Smoking Status Never Smoker Past Encounters 10/16/2019 Routine Care; Recurrent Urinary Tract Infection Ankush Mackenzie MD: [address] [address], Ph. [phone] 09/24/2019 Abnormal Glucose Tolerance Test During - Baby Not Yet Delivered Ankush Mackenzie MD: [address] [address], Ph. [phone] 09/18/2019 Screening; Routine Care; Recurrent Urinary Tract Infection ; History of Acute Renal Failure; Abnormal Glucose Tolerance Test During - Baby Not Yet Delivered Ankush Mackenzie MD: [address] [address], Ph. [phone] History of Present Illness None recorded. Review of Systems None recorded. Physical Exam None recorded.
--- OUTSIDE RECORDS SUMMARY | 2019-12-20 06:15 | XMS REPORT | Encounter Summary ---
:1995 Author Care Team Providers Name Role Phone Ankush Mackenzie Service Station Operator [phone] Simi Wilson Nurse Practitioner [phone] Reason for Visit ob 37 week visit Instructions 1. Routine care urinalysis, dipstick Discussion Note Advised patient to monitor movement and report if decreased. Labor symptoms reviewed. Take PNV and iron daily if tolerated. Asked her to call if she has symptoms of ruptured membranes or persistent regular contractions. Patient educational handouts: No information available. Plan of Care Reminders Provider Appointments OB Follow up Ankush Mackenzie, 11/27/2019 10:30AM Lab Urinalysis, In-House Results Dipstick 11/20/2019 Referral None recorded. Procedures None recorded. Surgeries None recorded. Imaging None recorded. Medications Name Start Date Bactrim DS 800 mg-160 mg tablet Take 1 tablet twice a day by oral route for 5 days. nmsxsekbdi-gvwuddhcnxtgf-bwuszwlt 50 mg-325 mg-40 mg tablet TAKE ONE (1) TABLET(S) EVERY 4 HOURS BY MOUTH DAILY NEEDED. ferrous gluconate 240 mg (27 mg iron) tablet Take 1 tablet every day by oral route. nitrofurantoin macrocrystal 50 mg capsule Take 1 capsule every day by oral route in the evening. nitrofurantoin monohydrate/macrocrystals 100 mg capsule Take 1 capsule every day by oral route. oseltamivir 75 mg capsule Take 1 capsule twice a day by oral route for 5 days. Reglan 10 mg tablet Take 1 tablet 4 times a day by oral route. Medications Administered None recorded. Vitals Height Weight BMI Blood Pressure 5 ft 1 in 151.7 lbs 28.7 kg/m2 114/70 mm[Hg] Results Lab Results Date Name Specimen Result Interpretation Description Value Range Status Address 11/13/2019 Urinalysis, Leukocytes Small In-House Dipstick Results: For Internal Use Only Nitrite negative In-House Results: For Internal Use Only Urobilinogen .2 In-House Results: For Internal Use Only Protein Trace In-House Results: For Internal Use Only Ph 7.0 In-House Results: For Internal Use Only Blood Negative In-House Results: For Internal Use Only Specific 1.025 In-House [place] Results: For Internal Use Only Ketone Negative In-House Results: For Internal Use Only Bilirubin Negative In-House Results: For Internal Use Only Glucose Negative In-House Results: For Internal Use Only Appearance Clear In-House Results: For Internal Use Only Color Yellow In-House Results: For Internal Use Only 10/30/2019 Streptococcus Genital No observation [facility], vaginal recorded. PSC: [id number] Culture, [address] Grecoified , Specimen [place] 10/30/2019 Culture, Urine No observation [facility] recorded. PSC: [id number], [place] 10/30/2019 Urinalysis, Leukocytes Trace In-House Dipstick Results: For Internal Use Only Nitrite negative In-House Results: For Internal Use Only Urobilinogen .2 In-House Results: For Internal Use Only Protein Trace In-House Results: For Internal Use Only Ph 7.0 In-House Results: For Internal Use Only Blood Negative In-House Results: For Internal Use Only Specific 1.020 In-House [place] Results: For Internal Use Only Ketone Negative In-House Results: For Internal Use Only Bilirubin Negative In-House Results: For Internal Use Only Glucose Negative In-House Results: For Internal Use Only Appearance Clear In-House Results: For Internal Use Only Color Yellow In-House Results: For Internal Use Only Urinalysis, Leukocytes Trace In-House Dipstick Results: For Internal Use Only Nitrite negative In-House Results: For Internal Use Only Urobilinogen .2 In-House Results: For Internal Use Only Protein 30 In-House Results: For Internal Use Only Ph 7.0 In-House Results: For Internal Use Only Blood Non-Hemoly In-House zed: Trace Results: For Internal Use Only Specific 1.020 In-House [place] Results: For Internal Use Only Ketone Negative In-House Results: For Internal Use Only Bilirubin Negative In-House Results: For Internal Use Only Glucose Negative In-House Results: For Internal Use Only Appearance Clear In-House Results: For Internal Use Only Color Dark In-House [place] Results: For Internal Use Only US, Obstetric, No observation In-House Limited recorded. Results: For Internal Use Only Allergies Code Code System Name Reaction Severity Status Onset NKDA Problems Name Status Onset Date Source Active 05/07/2019 Acute Cystitis in , Antepartum Active 05/14/2019 Acute Cervicitis Active 06/04/2019 History of Acute Renal Failure Active 06/04/2019 Generalized Headache Active 06/26/2019 Recurrent Urinary Tract Infection Active Procedures Date Name Performed by 11/13/2019 US, Obstetric, Limited In-House Results For Internal Use Only 85100 Vaccine List None recorded. Social History Tobacco Smoking Status Never Smoker Past Encounters 11/20/2019 Routine Care Ankush Mackenzie MD: [address] [place] [phone], Ph. [phone] 11/13/2019 Routine Care; Exposure to Influenzavirus; Recurrent Urinary Tract Infection; History of Acute Renal Failure Ankush Mackenzie MD: [address] [place] [phone], Ph. [phone] 10/30/2019 Screening; Recurrent Urinary Tract Infection; History of Acute Renal Failure Ankush Mackenzie MD: [address] [place] [phone], Ph. [phone] History of Present Illness None recorded. Review of Systems None recorded. Physical Exam None recorded.
--- OUTSIDE RECORDS SUMMARY | 2019-12-20 06:15 | XMS REPORT | Encounter Summary ---
:1995 Author Care Team Providers Name Role Phone Ankush Mackenzie Anvilsmith [phone] Simi Wilson Nurse Practitioner [phone] Reason for Visit ob 36 week visit Instructions 1. Routine care urinalysis, dipstick US, obstetric, limited 2. Exposure to Influenzavirus Tamiflu 75 mg capsule 3. Recurrent urinary tract infection Macrobid 100 mg capsule 4. History of acute renal failure Discussion Note Advised patient to monitor movement and report if decreased. Labor symptoms reviewed. Take PNV and iron daily if tolerated. Asked her to call if she has symptoms of ruptured membranes or persistent regular contractions. Patient educational handouts: No information available. Plan of Care Reminders Provider Appointments OB Follow up Ankush Mackenzie, 11/20/2019 10:15AM Lab Urinalysis, In-House Results Dipstick 11/13/2019 Referral None recorded. Procedures None recorded. Surgeries None recorded. Imaging US, In-House Results Obstetric, Limited 11/13/2019 Medications Name Start Date Bactrim DS 800 mg-160 mg tablet Take 1 tablet twice a day by oral route for 5 days. orxtasuuat-iecwxtfgpgmzp-dkzzukfm 50 mg-325 mg-40 mg tablet TAKE ONE (1) TABLET(S) EVERY 4 HOURS BY MOUTH DAILY NEEDED. ferrous gluconate 240 mg (27 mg iron) tablet Take 1 tablet every day by oral route. Macrobid 100 mg capsule Take 1 capsule every day by oral route. nitrofurantoin macrocrystal 50 mg capsule Take 1 capsule every day by oral route in the evening. Reglan 10 mg tablet Take 1 tablet 4 times a day by oral route. Tamiflu 75 mg capsule Take 1 capsule twice a day by oral route for 5 days. Medications Administered None recorded. Vitals Height Weight BMI Blood Pressure 5 ft 1 in 151 lbs 28.5 kg/m2 129/74 mm[Hg] Results Lab Results Date Name Specimen [...] For Internal Use Only Specific 1.025 In-House [place] Results: For Internal Use Only Ketone Negative In-House Results: For Internal Use Only Bilirubin Negative In-House Results: For Internal Use Only Glucose Negative In-House Results: For Internal Use Only Appearance Clear In-House Results: For Internal Use Only Color Yellow In-House Results: For Internal Use Only 10/30/2019 Streptococcus Genital No observation [facility], vaginal recorded. PSC: [id number] Culture, Angie Grecoified , Specimen [place] 10/30/2019 Culture, Urine No observation [facility] recorded. PSC: [id number], [place] 10/30/2019 Urinalysis, Leukocytes Trace In-House Dipstick Results: For Internal Use Only Nitrite negative In-House Results: For Internal Use Only Urobilinogen .2 In-House Results: For Internal Use Only Protein Trace In-House Results: For Internal Use Only Ph 7.0 In-House Results: For Internal Use Only Blood Negative In-House Results: For Internal Use Only Specific 1.020 In-House [place] Results: For Internal Use Only Ketone Negative In-House Results: For Internal Use Only Bilirubin Negative In-House Results: For Internal Use Only Glucose Negative In-House Results: For Internal Use Only Appearance Clear In-House Results: For Internal Use Only Color Yellow In-House Results: For Internal Use Only 10/16/2019 Urinalysis, Leukocytes Small In-House Dipstick Results: For Internal Use Only Nitrite negative In-House Results: For Internal Use Only Urobilinogen .2 In-House Results: For Internal Use Only Protein 30 In-House Results: For Internal Use Only Ph 7.0 In-House Results: For Internal Use Only Blood Non-Hemoly In-House zed: Trace Results: For Internal Use Only Specific 1.025 In-House [place] Results: For Internal Use Only Ketone Negative [...] Infection Active Procedures Date Name Performed by 10/16/2019 US, Obstetric, Limited In-House Results For Internal Use Only [address] 11/13/2019 US, Obstetric, Limited In-House Results For Internal Use Only 33046 Vaccine List None recorded. Social History Tobacco Smoking Status Never Smoker Past Encounters 11/13/2019 Routine Care; Exposure to Influenzavirus; Recurrent Urinary Tract Infection; History of Acute Renal Failure Ankush Mackenzie MD: [address] [place] [phone], Ph. [phone] 10/30/2019 Screening; Recurrent Urinary Tract Infection; History of Acute Renal Failure Ankush Mackenzie MD: [address] [place] [phone], Ph. [phone] 10/16/2019 Routine Care; Recurrent Urinary Tract Infection Ankush Mackenzie MD: [address] [place] [phone], Ph. [phone] History of Present Illness None recorded. Review of Systems None recorded. Physical Exam None recorded.
--- OUTSIDE RECORDS SUMMARY | 2019-12-20 06:15 | XMS REPORT | Encounter Summary ---
:1995 Author Care Team Providers Name Role Phone Ankush Gurdeep Package Handler [phone] Simi Wilson Nurse Practitioner [phone] Reason for Visit ob 34 week visit Instructions 1. screening streptococcus group B, culture, unspecified specimen - PCR for group B strep, Ob - vag/rectal 2. Recurrent urinary tract infection urinalysis, dipstick culture, urine 3. History of acute renal failure Discussion Note Discussed GBS and reason for testing. Discussed movement and PTL symptoms. Reminded patient to take iron and PNV, stay well hydrated, and call if movement is decreased, or if regular contractions, bleeding, or symptoms of ruptured membranes occur. Patient educational handouts: No information available. Plan of Care Reminders Provider Appointments OB [place] on or around Ankush Gurdeep, 11/13/2019 Lab Urinalysis, 10/30/2019 In-House Dipstick Results Streptococcus 10/30/2019 [place] [facility], Culture, [facility] (Lab) Culture, Urine 10/30/2019 [facility] (Labs) (Xray) Referral None recorded. Procedures None recorded. Surgeries None recorded. Imaging None recorded. Medications Name Start Date Bactrim DS 800 mg-160 mg tablet Take 1 tablet twice a day by oral route for 5 days. ijoslphxib-vthtsvptycghr-xqvpyjvw 50 mg-325 mg-40 mg tablet TAKE ONE [...] BMI Blood Pressure 5 ft 1 in 148 lbs 28 kg/m2 106/62 mm[Hg] Results Lab Results Date Name Specimen Result Interpretation Description Value Range Status Address 10/30/2019 Urinalysis, Leukocytes Trace In-House Dipstick Results: For Internal Use Only Nitrite negative In-House Results: For Internal Use Only Urobilinogen .2 In-House Results: For Internal Use Only Protein Trace In-House Results: For Internal Use Only Ph 7.0 In-House Results: For Internal Use Only Blood Negative In-House Results: For Internal Use Only Specific 1.020 In-House [place] Results: For Internal Use Only Ketone Negative [...] In-House Results: For Internal Use Only Blood Non-Hemolyz In-House ed: Trace Results: For Internal Use Only Specific 1.025 In-House [place] Results: For Internal Use Only Ketone Negative [...] Limited In-House Results For Internal Use Only [address] Vaccine List None recorded. Social History Tobacco Smoking Status Never Smoker Past Encounters 10/30/2019 Screening; Recurrent Urinary Tract Infection; History of Acute Renal Failure Ankush Mackenzie MD: [address] [address], Ph. [phone] 10/16/2019 Routine Care; Recurrent Urinary Tract Infection Ankush Mackenzie MD: [address] [address], [place] [address], Ph. [phone] History of Present Illness None recorded. Review of Systems None recorded. Physical Exam None recorded.
--- OUTSIDE RECORDS SUMMARY | 2019-12-20 06:16 | XMS REPORT | Encounter Summary ---
:1995 Author Care Team Providers Name Role Phone Ankush Mackenzie Signal Operator [phone] Siim Wilson Nurse Practitioner [phone] Reason for Visit ob 38 week visit Instructions 1. Routine care Vitafol-One 29 mg iron-1 mg-200 mg capsule 2. Reduced movement urinalysis, dipstick non-stress test 3. Candidiasis of vagina Diflucan 200 mg tablet wet [place], vaginal Discussion Note Discussed risks, benefits, and alternatives of induction of labor, including prolonged labor, infection, dsitress, failed induction, and increased risk of section. Details of use of Pitocin explained. Induction scheduled for 12/04/19. At least 15 min. of face to face time with the patient, >50% spent on counseling. Patient educational handouts: No information available. Plan of Care Reminders Provider Appointments Post Ankush Mackenzie, Visit 12/25/2019 3:00PM Lab Urinalysis, In-House Results Dipstick 11/27/2019 [place], In-House Results Vaginal 11/27/2019 Referral None recorded. Procedures None recorded. Surgeries None recorded. Imaging Non-stress In-House Results Test 11/27/2019 Medications Name Start Date Bactrim DS 800 mg-160 mg tablet Take 1 tablet twice a day by oral route for 5 days. jbfbmdnofx-aboqzlschiqsg-wkrtqwqn 50 mg-325 mg-40 mg tablet TAKE ONE (1) TABLET(S) EVERY 4 HOURS BY MOUTH DAILY NEEDED. Diflucan 200 mg tablet Take 1 tablet by oral route for 3 days. ferrous gluconate 240 mg (27 mg iron) [...] 4 times a day by oral route. Vitafol-One 29 mg iron-1 mg-200 mg capsule Take 1 capsule every day by oral route at bedtime. Medications Administered None recorded. Vitals Height Weight BMI Blood Pressure 5 ft 1 in 150.5 lbs 28.4 kg/m2 127/67 mm[Hg] Results Lab Results Date Name Specimen Result Interpretation Description Value Range Status Address 11/27/2019 Urinalysis, Leukocytes Small In-House Dipstick Results: For Internal Use Only Nitrite negative In-House Results: For Internal Use Only Urobilinogen .2 In-House Results: For Internal Use Only Protein Trace In-House Results: For Internal Use Only Ph 7.0 In-House Results: For Internal Use Only Blood Negative In-House Results: For Internal Use Only Specific 1.020 In-House [place] Results: For Internal Use Only Ketone Negative In-House Results: For Internal Use Only Bilirubin Negative In-House Results: For Internal Use Only Glucose Negative In-House Results: For Internal Use Only Appearance Cloudy In-House Results: For Internal Use Only Color Yellow In-House Results: For Internal Use Only 11/13/2019 Urinalysis, Leukocytes Small In-House Dipstick Results: For Internal Use Only Nitrite negative In-House Results: For Internal Use Only Urobilinogen .2 In-House Results: For Internal Use Only Protein Trace In-House Results: For Internal Use Only Ph 7.0 In-House Results: For Internal Use Only Blood Negative In-House Results: For Internal Use Only Specific 1.025 In-House [place] Results: For Internal Use Only Ketone Negative In-House Results: For Internal Use Only Bilirubin Negative In-House Results: For Internal Use Only Glucose Negative In-House Results: For Internal Use Only Appearance Clear In-House Results: For Internal Use Only Color Yellow In-House Results: For Internal Use Only 10/30/2019 Streptococcus Genital No observation [facility], vaginal recorded. PSC: [id number] Culture, [address] Unspecified , Specimen [place] 10/30/2019 Culture, Urine No observation [facility] recorded. PSC: [id number], [place] 10/30/2019 Urinalysis, Leukocytes Trace In-House Dipstick Results: For Internal Use Only Nitrite negative In-House Results: For Internal Use Only Urobilinogen .2 In-House Results: For Internal Use Only Protein Trace In-House Results: For Internal Use Only Ph 7.0 In-House Results: For Internal Use Only Blood Negative In-House Results: For Internal Use Only Specific 1.020 In-House [place] Results: For Internal Use Only Ketone Negative In-House Results: For Internal Use Only Bilirubin Negative In-House Results: For Internal Use Only Glucose Negative In-House Results: For Internal Use Only Appearance Clear In-House Results: For Internal Use Only Color Yellow In-House Results: For Internal Use Only [place], Clue Cells negative In-House Vaginal Results: For Internal Use Only Wbcs positive In-House Results: For Internal Use Only Trichomonads negative In-House Results: For Internal Use Only Epithelial normal In-House Cells Results: For Internal Use Only Rbcs negative In-House Results: For Internal Use Only Non-stress Test Reactive Yes In-House Results: For Internal Use Only Contractions No In-House Results: For Internal Use Only Urinalysis, Leukocytes Trace In-House Dipstick Results: For Internal Use Only Nitrite negative In-House Results: For Internal Use Only Urobilinogen .2 In-House Results: For Internal Use Only Protein 30 In-House Results: For Internal Use Only Ph 7.0 In-House Results: For Internal Use Only Blood Non-Hemoly In-House zed: Trace Results: For Internal Use Only Specific 1.020 In-House [place] Results: For Internal Use Only Ketone Negative [...] Limited In-House Results For Internal Use Only [address] 11/27/2019 Non-stress Test In-House Results For Internal Use Only 47[address] Vaccine List None recorded. Social History Tobacco Smoking Status Never Smoker Past Encounters 11/27/2019 Routine Care; Reduced Movement; Candidiasis of Vagina Ankush Mackenzie MD: [address] [place] [phone], Ph. [phone] 11/20/2019 Routine Care Ankush Mackenzie MD: [address] [place] [phone], Ph. [phone] 11/13/2019 Routine Care; Exposure to Influenzavirus; Recurrent Urinary Tract Infection; History of Acute Renal Failure Ankush Mackenzie MD: [address] [place] [phone], Ph. [phone] 10/30/2019 Screening; Recurrent Urinary Tract Infection; History of Acute Renal Failure Ankush Mackenzie MD: [address] [place] [phone], Ph. [phone] History of Present Illness None recorded. Review of Systems None recorded. Physical Exam None recorded.
--- OUTSIDE RECORDS SUMMARY | 2019-12-20 06:16 | XMS REPORT | Continuity of Care Document ---
:1995 [address] Organization [facility] Address [address] [place] [address] Allergies, Adverse Reactions, Alerts Allergen Type Severity Reaction Last Updated Verified Status No Known Allergies Allergy Unknown May 21, 2014 No Active Medications Medication Status Dose Units Route Sig Qty Days Start Date End Date Instructions Ibuprofen Discontinued 1 ORAL Every 6 Hours As December 05, 2019 7:05am Needed as needed for (One-Time) Pain Active 1 ORAL Daily Multivit-Min W/Fe-Fa * Acetaminophen W/ Discontinued 1-2 ORAL Every 6 13 JulyAugust 24, Codeine #3 * Hours As 2015 Needed for 6:59am Pain Amoxicillin/Clavu Discontinued 1 ORAL Twice A August 26December 05, lanate Potassium 2015 9:39am 2019 Cephalexin * Discontinued 1 ORAL Twice A June Ferrous Sulfate Discontinued 1 ORAL Once Daily August 24, 2016 Ibuprofen Discontinued 1 ORAL Every 6 28 JulyAugust 24, Hours As 2015 Needed as 6:59am needed for Pain Discontinued 1 ORAL Daily December 05, Multivit-Min 2019 W/Fe-Fa * Problems Active Problems Medical Problem Onset Date Status 39 weeks gestation of Active Acute chest wall pain Active Acute pyelonephritis Active Constipation Active Constipation Active Group B Streptococcus carrier, delivered, current hospitalization Active [id number] Active Left hip pain Active Left otitis media Active Vaginal delivery Active Procedures No procedure information available. Relevant Diagnostic Tests and/or Laboratory Data Laboratory Results Test Date/Time Result Interpretation Reference Result Performing Range Comment Site White Blood November 9.7 4.0-11.5 [facility], [address] Count 2019 11:05pm [facility] [address] Red Blood November 3.68 3.80-5.20 [facility], [address] Count 2019 11:05pm [facility] [address] Hemoglobin November 10.7 10.5-15.7 [facility], [address] 2019 11:05pm [place] [address] Hematocrit November 33.4 34.0-50.0 [facility], [address] 2019 11:05pm [place] [address] Mean November 90.8 86-100 [facility], [address] Corpuscular 2019 Volume 11:05pm [place] [address] Mean November 29.1 26.2-33.4 [facility], [address] Corpuscular 2019 Hemoglobin 11:05pm [place] [address] Mean November 32.0 30-34 [facility], [address] Corpuscular 2019 Hemoglobin 11:05pm [place] [address] Concent Red Cell November 14.1 12.0-15.5 [facility], [address] Distribution 2019 Width 11:05pm [place] [address] Platelet Count November 218 165-450 [facility], [address] 2019 11:05pm [place] [address] Mean Platelet November 9.9 9.4-12.6 [facility], [address] Volume 2019 11:05pm [place] [address] Neutrophils November 73.8 44.4-80.1 [facility], [address] (%) (Auto) 2019 11:05pm [place] [address] Immature February 0.6 0.0-0.4 [facility], [address] Granulocyte % 2019 (Auto) 11:05pm [place] [address] Lymphocytes February 19.3 10.0-50.0 [facility], [address] (%) (Auto) 2019 11:05pm [place] [address] Monocytes (%) November 5.9 3.6-12.0 [facility], [address] (Auto) 2019 11:05pm [place] [address] Eosinophils February 0.3 0.0-5.4 [facility], [address] (%) (Auto) 2019 11:05pm [place] [address] Basophils (%) November 0.1 0.1-1.2 [facility], [address] (Auto) 2019 11:05pm [place] [address] Neutrophils # November 7.17 1.56-6.13 [facility], [address] (Auto) 2019 11:05pm [place] [address] Absolute February 0.1 0.0-0.03 [facility], [address] Immature 2019 Granulocyte 11:05pm [facility] [address] (auto Lymphocytes # November 1.9 1.18-3.74 [facility], [address] (Auto) 2019 11:05pm [place] [address] Monocytes # November 0.57 0.24-0.86 [facility], [address] (Auto) 2019 11:05pm [place] [address] Eosinophils # February 0.03 0.04-0.36 [facility], [address] (Auto) 2019 11:05pm [place] [address] Basophils # February 0.01 0.01-0.08 [facility], [address] (Auto) 2019 11:05pm [facility] [address] Nucleated Red February 0 0-0.2 [facility], [address] Blood Cells % 2019 11:05pm [facility] [address] Nucleated Red February 0 0 [facility], [address] Blood Cells # 2019 11:05pm [facility] [address] Venous Blood October SENT TO TESTING [facility], [address] Collection 2019 [facility] PERFORMED 10:49am AT [facility]. [facility] [address] Rapid Plasma November NONREACTIVE NONREACTIVE [facility], [address] [facility] Reagin 2019 5:37am [facility] [address] Hepatitis B November Negative Negative Performed [facility] A# [id number], [address] [facility], [address] Surface 2019 at: HD - Antigen 5:37am [facility] [address] [id number] [place], [place] [id number] ab Director: Jorge Moody MD, Phone: [phone] Health Concerns No known health concerns documented Advance Directives Advance Directive Response Recorded Date/Time Advance Directives No January 23, 2015 8:40pm Advance Directive on File No December 04, 2019 12:00pm Directive to Physicians/Living Will No January 23, 2015 8:40pm Health Care Proxy No January 23, 2015 8:40pm Name of Surrogate/Decision Maker NA November 27, 2019 11:22am Organ Donor No January 23, 2015 8:40pm Medical Power of Software Configuration Analyst No January 23, 2015 8:40pm Patient/Family Given Education Material R/T No December 04, 2019 12:00pm Directives? Chief Complaint and Reason for Visit Chief Complaint 39 WK IUP , DESIRES INDUCTION Encounters Encounter Location(s) Arrival/Admit Date Discharge/Depart Date Provider(s) Admitted Jose December 04, 2019 ANKUSH HUERTA Inpatient [facility] 5:25am A Ctr Registered Jose October 31, 2019 ANKUSH HUERTA [facility] 10:15am A Ctr Assessments No Assessments Information Available Functional Status No Functional Status information available Goals No Goals Information Available Immunizations No Immunization Information Available Mental Status No Mental Status Information Available Medical Equipment No Medical Equipment Information available Insurance Providers Guarantor Sandeep Sauer Address [address] [place] [address] Contact Info. Home Phone: Payer Policy Id Coverage Id Subscriber's Subscriber Id Effective Expiration Name Date Date [employer]ET[employer] [id number] Cristiane [id number] [facility] [id number] Fahad Harrington [id number] [employer] Plan of Treatment Future Tests Future scheduled test information is unavailable Pending Tests Pending diagnostic test information is unavailable Future Visits Future appointment information is unavailable Referrals to Other Providers Referral information is unavailable Future Procedures Future procedure information is unavailable Future Medications Future medication information is unavailable Patient Instructions Home Care Instructions for Mom Hemorrhage Social History Smoking Status Status Date of Observation Never smoked tobacco (finding) December 04, 2019 12:00pm Observation Status Observation Response Date of Response Hx Physical Abuse No August 24, 2016 10:56am Assigned Sex Female Vital Signs Vital Reading Result Collection Date/Time Hospital Discharge Instructions Additional Instructions Instructions Physician Documentation Discharge Instructions No strenuous activity for two weeks. Take ibuprofen and/or hydrocodone as needed for pain. May eat a regular diet. May take a shower or tub bath once or twice a day.~ If stitches are present, soak in warm water for five minutes twice a day. Take vitamin and iron once a day. Follow up with Dr. Huerta in three weeks. Call the office if fever, heavy bleeding, or worsening pain occur. Thank you, Ankush Huerta M.D.
[2019-12-20] MEDS ORDERED: IBUPROFEN 200 MG TAB PO ONE (06:32)
[2019-12-20] MEDS ORDERED: NA CHLORIDE 0.9% 1,000 ML ONE (06:33)
[2019-12-20] MEDS ORDERED: IBUPROFEN 400 MG TAB ONE (06:33)
[2019-12-20 06:58] LABS: Absolute Lymphocytes (CBC) 0.5 K/uL (0.7-4.9); Basophils % 0.1 % (0-1.3); Hematocrit 45.5 % (36.0-45.0); Lymphocytes % 6.5 % (15.3-44.8); MPV 8.2 fL (7.6-11.3); RBC Red Blood Cell Count 5.17 M/uL (3.86-4.86)
[2019-12-20 07:13] LABS: Albumin 4.3 g/dL (3.4-5.0); Bilirubin Total 0.7 mg/dL (0.2-1.0); Potassium 3.5 mmol/L (3.5-5.1); Protein, Total 8.9 g/dL (6.4-8.2)
[2019-12-20 07:30] LABS: Urine Blood TRACE (NEG); Urine Glucose NEGATIVE (NEG); Urine Protein TRACE (NEG); Urine Specific Gravity 1.025 (1.005-1.030); Urine pH 6.5 (5.0-7.0)
[2019-12-20 07:35] LABS: Urine Bacteria <20 /HPF (<20); Urine Culture Reflex Order REFLEXED; Urine Mucus LIGHT /HPF (NONE SEEN); Urine RBC <5 /HPF (NONE SEEN)
--- NOTE | 2019-12-20 08:25 | RAD REPORT ---
EXAM DESCRIPTION: CT - Abdomen Pelvis W Contrast - 12/20/2019 8:07 am CLINICAL HISTORY: diarrhea, fever, from December 04. COMPARISON: Abdomen Pelvis W Contrast dated 09/22/2018 TECHNIQUE: Biphasic, helical CT imaging of the abdomen and pelvis was performed following 100 ml non -ionic IV contrast. No oral contrast given. All CT scans are performed using dose optimization technique as appropriate and may include automated exposure control or mA/KV adjustment according to patient size. FINDINGS: No suspicious findings in the lung bases. The liver, spleen, and pancreas show no suspicious findings. Gallbladder and biliary tree are also wi thout suspicious finding. Gallstones can be occult on CT imaging. No finding to suspect an active gal lbladder process. Renal function is generally symmetric. The patient does have nodular contour to the kidneys which may be baseline for the patient. Cortical scarring from prior renal infections would be possible but wou ld need correlation with history. There is some minimal subtle heterogeneity of parenchymal enhanceme nt. No renal solid mass lesion. Pyelonephritis is not entirely excluded but needs correlation with cl inical history and UA findings. No hydronephrosis or obstructing calculus. Urinary bladder is fully c ontracted limiting assessment. No adrenal abnormalities. The uterus remains enlarged, not unexpected for status. Vigorously enhancing vasculature w ithin and around the uterus also an expected finding. No ovarian abnormality seen. No abnormal air co llection within the endometrial cavity. Endometrial hypodensity is not unexpected. CT imaging alone c annot exclude endometritis. No gonadal vein thrombosis. No dilated bowel loops or bowel wall thickening. Appendix is not clearly defined. No direct or indire ct evidence for appendicitis. No free air, free fluid or inflammatory stranding. No hernia, mass or bulky lymphadenopathy. No suspicious bony findings. IMPRESSION: Uterus is as expected for recent status. CT alone cannot exclude endometriti s. Subtle areas of diminished enhancement within the renal parenchyma. A minimal degree of pyelonephriti s cannot be excluded but would need supporting clinical presentation and supporting UA abnormalities. No acute GI abnormality.
--- NOTE | 2019-12-20 08:46 | EDPHYS ---
Physician Documentation [facility] Name: Patsy Gupta Age: 24 yrs Sex: Female : 1995 Arrival Date: 12/20/2019 Time: 06:13 Bed 20 Private MD: ED Physician Joseph Jim HPI: 12/20 06:32 This 24 yrs old Female presents to ER via Ambulatory with complaints of Fever, jmm Chills, Ear Pain. 06:32 Onset: The symptoms/episode began/occurred last night. Modifying factors: there are no jmm obvious modifying factors. Associated signs and symptoms: Pertinent positives: backache, chills, Pertinent negatives: sore throat, vomiting. This is a 24 year old female with no chronic medical conditions that presents to the ED with complaints of fever, chills, body aches beginning this past evening. Patient is s/p vaginal delivery on 12/04/2019. Denies cough. Patient also complains of upper back pain and breast tenderness. . 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 - Coronavirus screen:: The patient has NOT traveled to [place] in the past 14 days. The patient has NOT had contact with known/suspected case of Coronavirus? Proceed with normal triage procedures. - Social history:: Smoking status: Patient denies any tobacco usage or history of. - Ebola Screening: : Patient negative for fever greater than or equal to 101.5 degrees Fahrenheit, and additional compatible Ebola Virus Disease symptoms. ROS: 06:32 Constitutional: Positive for body aches, fever. jmm 06:32 ENT: Positive for ear pain, Negative for sore throat. 06:32 Respiratory: Negative for cough. 06:32 Abdomen/GI: Positive for diarrhea, Negative for abdominal pain, vomiting. 06:32 : Negative for injury or acute deformity. 06:32 All other systems are negative. Exam: 06:32 Constitutional: This is a well developed, well nourished patient who is awake, alert, jmm and in no acute distress. Head/Face: atraumatic. Eyes: EOMI, no conjunctival erythema appreciated ENT: Moist Mucus Membranes Neck: Trachea midline, Supple Chest/axilla: Normal chest wall appearance and motion. 06:32 Cardiovascular: Rate: normal, Rhythm: regular, Pulses: no pulse deficits are appreciated. 06:32 Respiratory: the patient does not display signs of respiratory distress, Respirations: normal, Breath sounds: are clear throughout. 06:32 Abdomen/GI: Inspection: abdomen appears normal, Palpation: abdomen is soft and non-tender, in all quadrants. 06:32 Back: ROM is normal. 06:32 Musculoskeletal/extremity: ROM: intact in all extremities. 06:32 Skin: Appearance: Color: normal in color. 06:32 Neuro: Orientation: is normal, Mentation: is normal, Memory: is normal. 06:32 Psych: Behavior/mood is pleasant, cooperative. 07:06 Chest/axilla: Palpation: is normal, Breasts: cellulitis, is not appreciated, nipple jm discharge, of the right breast, of the left breast, that is milky, rash, is not appreciated. 07:06 Back: CVA tenderness, that is moderate, is noted on the right, no midline tenderness. Vital Signs: 06:31 BP 111 / 76; Pulse 114; Resp 17 S; Temp 101.5(O); Pulse Ox 99% on R/A; Weight 63.5 kg jd3 (R); Height 5 ft. 1 in. (154.94 cm) (R); Pain 9/10; 07:20 BP 113 / 66; Pulse 79; Resp 16; Pulse Ox 98% on R/A; rb1 07:40 Temp 99.2(O); rb1 08:20 BP 112 / 59; Pulse 71; Resp 17; Temp 98.4(O); Pulse Ox 99% on R/A; rb1 06:31 Body Mass Index 26.45 (63.50 kg, 154.94 cm) jd3 MDM: 06:15 Patient medically screened. nick 08:42 Data reviewed: vital signs, nurses notes. Counseling: I had a detailed discussion with lily the patient and/or guardian regarding: the historical points, exam findings, and any diagnostic results supporting the discharge/admit diagnosis, lab results, radiology results, the need for outpatient follow up. ED course: Patient's PE concerning for pyelonephritis. Will treat. Patient's abdomen is soft. Patient has no abnormal discharge, no pelvic pain, I do not currently suspect endometritis. Patient is advised to follow up with her OB for reevaluation and otherwise given strict return precautions. patient understood and agrees with the plan of care. . 12/20 06:24 Order name: CBC with Diff [facility] 12/20 06:24 Order name: CMP [facility] 12/20 06:25 Order name: Flu [facility] 12/20 06:25 Order name: Strep [facility] 12/20 06:25 Order name: Procalcitonin [facility] 12/20 06:25 Order name: Lactate [facility] 12/20 06:25 Order name: Blood Culture Adult (2) [facility] 12/20 06:30 Order name: Urine Microscopic Only [facility] 12/20 07:01 Order name: CBC with Automated Diff [facility] 12/20 07:14 Order name: Comprehensive Metabolic Panel; Complete Time: 07:23 [facility] 12/20 07:14 Order name: Lactate; Complete Time: 07:23 [facility] 12/20 07:16 Order name: Group A Streptococcus Rapid Sc; Complete Time: 07:23 [facility] 12/20 07:17 Order name: Influenza Screen (A ; Complete Time: 07:23 [facility] 12/20 07:26 Order name: Urine Dipstick--Ancillary (enter results) md 12/20 06:25 Order name: Saline Lock; Complete Time: 06:53 [facility] 12/20 06:25 Order name: Urine Dipstick-Ancillary (obtain specimen); Complete Time: 07:24 [facility] 12/20 06:29 Order name: Gown patient; Complete Time: 06:37 [facility] 12/20 07:26 Order name: Urine --Ancillary (enter results) md 12/20 07:30 Order name: Procalcitonin; Complete Time: 07:33 [facility] 12/20 07:30 Order name: Urine --Ancillary; Complete Time: 07:33 [facility] 12/20 07:30 Order name: Urine Dipstick-Ancillary; Complete Time: 07:33 [facility] 12/20 07:36 Order name: Urine Microscopic Only; Complete Time: 07:42 [facility] 12/20 07:43 Order name: CT Abd/Pelvis - IV Contrast Only [facility] 12/20 08:27 Order name: CT; Complete Time: 08:29 [facility] Administered Medications: 06:35 Drug: Ibuprofen 600 mg Route: PO; rr5 06:53 Drug: NS 0.9% 1000 ml Route: IV; Rate: 1 bolus; Site: right antecubital; jd3 08:53 Drug: Rocephin 1 grams Route: IV; Rate: calculated rate; Site: right antecubital; rb1 09:06 Follow up: Response: No adverse reaction; IV Status: Completed infusion rb1 Disposition: 12/21 00:02 Co-signature as Attending Physician, Joseph Jim MD I agree with the assessment and [facility] plan of care. Disposition: 12/20/19 08:44 Discharged to Home. Impression: Urinary tract infection, site not specified, Diarrhea, unspecified, Fever, unspecified. - Condition is Stable. - Discharge Instructions: Food Choices to Help Relieve Diarrhea, Adult, Pyelonephritis, Adult. - Prescriptions for Cephalexin 500 mg Oral Capsule - take 1 capsule by ORAL route every 12 hours for 10 days; 20 capsule. - Medication Reconciliation Form, Thank You Letter, Antibiotic Education, Prescription Opioid Use form. - Follow up: Private Physician; When: 2 - 3 days; Reason: Recheck today's complaints, Continuance of care, Re-evaluation by your physician. Signatures: Dispatcher [employer] [facility] Joseph Jim MD MD cha Mickail, Joel, PA PA [facility] Rachel Evans, RN RN rb1 Tremayne Phipps RN RN jd3 Tay Sanchez RN RN rr5 Corrections: (The following items were deleted from the chart) 12/20 08:10 06:32 Abdomen/GI: Negative for abdominal pain, nausea and vomiting, diarrhea, lily [facility] 09:14 08:44 12/20/2019 08:44 Discharged to Home. Impression: Urinary tract infection, site rb1 not specified; Diarrhea, unspecified; Fever, unspecified. Condition is Stable. Forms are Medication Reconciliation Form, Thank You Letter, Antibiotic Education, Prescription Opioid Use. Follow up: Private Physician; When: 2 - 3 days; Reason: Recheck today's complaints, Continuance of care, Re-evaluation by your physician. illy
--- NOTE | 2019-12-20 08:46 | ER ---
Nurse's Notes [facility] Name: Patsy Gupta Age: 24 yrs Sex: Female : 1995 Arrival Date: 12/20/2019 Time: 06:13 Bed 20 Private MD: Diagnosis: Urinary tract infection, site not specified;Diarrhea, unspecified;Fever, unspecified Presentation: 12/20 06:27 Presenting complaint: Patient states: "I recently gave on the . I recently jd3 started to get a fever and generalized body ache.". Transition of care: patient was not received from another setting of care. Onset of symptoms was December 19, 2019. Risk Assessment: Do you want to hurt yourself or someone else? Patient reports no desire to harm self or others. Initial Sepsis Screen: Does the patient meet any 2 criteria? Temp <36.0*C (96.8*F)) or > 38.3*C (100.9*F). HR > 90 bpm. Does the patient have a suspected source of infection? No. Patient's initial sepsis screen is negative. Care prior to arrival: None. 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 - Coronavirus screen:: The patient has NOT traveled to [place] in the past 14 days. The patient has NOT had contact with known/suspected case of Coronavirus? Proceed with normal triage procedures. - Social history:: Smoking status: Patient denies any tobacco usage or history of. - Ebola Screening: : Patient negative for fever greater than or equal to 101.5 degrees Fahrenheit, and additional compatible Ebola Virus Disease symptoms. Screenin:36 Abuse screen: Denies threats or abuse. Nutritional screening: No deficits noted. jd3 Tuberculosis screening: No symptoms or risk factors identified. Fall Risk Ambulatory Aid- None/Bed Rest/Nurse Assist (0 pts). Gait- Normal/Bed Rest/Wheelchair (0 pts) Mental Status- Oriented to own ability (0 pts). Total Robbins Fall Scale indicates No Risk (0-24 pts). Assessment: 06:33 General: Appears in no apparent distress. uncomfortable, Behavior is calm, cooperative, jd3 appropriate for age. Pain: Complains of pain in left ear, back, right breast and left breast Quality of pain is described as aching, sharp. Neuro: Level of Consciousness is awake, alert, obeys commands, Oriented to person, place, time, situation. Cardiovascular: Capillary refill < 3 seconds Thorax. Respiratory: Airway is patent Respiratory effort is even, unlabored, Respiratory pattern is regular, symmetrical, Denies cough. GI: Abdomen is flat, non-distended, Reports lack of appitite. : Denies burning with urination, vaginal bleeding. EENT: Tympanic membrane clear on left ear and right ear. Derm: Skin is intact, Skin is dry, Skin is normal, Skin temperature is warm. Musculoskeletal: Circulation, motion, and sensation intact. Range of motion: intact in all extremities. 07:00 General: Appears uncomfortable, Behavior is calm, cooperative. Pain: Complains of pain rb1 in left breast and right breast and back Pain currently is 8 out of 10 on a pain scale. Neuro: Level of Consciousness is awake, alert, obeys commands, Oriented to person, place, time, situation. Cardiovascular: Capillary refill < 3 seconds is brisk in bilateral fingers. Respiratory: Airway is patent Respiratory effort is even, unlabored, Respiratory pattern is regular, symmetrical. Derm: Skin is pink, warm \\T\\ dry. 08:00 Reassessment: Patient appears in no apparent distress at this time. Patient and/or rb1 family updated on plan of care and expected duration. Pain level reassessed. Patient is alert, oriented x 3, equal unlabored respirations, skin warm/dry/pink. 08:41 Reassessment: Called pharmacy to bring Rocephin 1 g IVP to the floor. rb1 08:58 Reassessment: Patient appears in no apparent distress at this time. No changes from rb1 previously documented assessment. Pt. is bottle feeding the baby and talking with family at the bedside. Vital Signs: 06:31 BP 111 / 76; Pulse 114; Resp 17 S; Temp 101.5(O); Pulse Ox 99% on R/A; Weight 63.5 kg jd3 (R); Height 5 ft. 1 in. (154.94 cm) (R); Pain 9/10; 07:20 BP 113 / 66; Pulse 79; Resp 16; Pulse Ox 98% on R/A; rb1 07:40 Temp 99.2(O); rb1 08:20 BP 112 / 59; Pulse 71; Resp 17; Temp 98.4(O); Pulse Ox 99% on R/A; rb1 06:31 Body Mass Index 26.45 (63.50 kg, 154.94 cm) jd3 ED Course: 06:13 Patient arrived in ED. ds1 06:15 Anthony Mitchell PA is PHCP. jmm 06:15 Joseph Jim MD is Attending Physician. jmm 06:25 Tremayne Phipps, RN is Primary Nurse. jd3 06:30 Triage completed. jd3 06:33 Arm band placed on. jd3 06:36 Patient has correct armband on for positive identification. Placed in gown. Bed in low jd3 position. Call light in reach. Side rails up X 1. Adult w/ patient. 06:40 Inserted saline lock: 20 gauge in right antecubital area, using aseptic technique. rr5 ,using aseptic technique. inserted by [facility] tech Blood collected. 06:40 First set of blood cultures drawn by ED staff. rr5 06:48 Second set of blood cultures drawn. rr5 08:04 CT completed. Patient tolerated procedure well. Patient moved back from [place]. bq 09:07 No provider procedures requiring assistance completed. IV discontinued, intact, rb1 bleeding controlled, No redness/swelling at site. Pressure dressing applied. Administered Medications: 06:35 Drug: Ibuprofen 600 mg Route: PO; rr5 06:53 Drug: NS 0.9% 1000 ml Route: IV; Rate: 1 bolus; Site: right antecubital; jd3 08:53 Drug: Rocephin 1 grams Route: IV; Rate: calculated rate; Site: right antecubital; rb1 09:06 Follow up: Response: No adverse reaction; IV Status: Completed infusion rb1 Outcome: 08:44 Discharge ordered by . jmm 09:07 Discharged to home ambulatory, with family. rb1 09:07 Condition: stable 09:07 Discharge instructions given to patient, Instructed on discharge instructions, follow up and referral plans. medication usage, Demonstrated understanding of instructions, follow-up care, medications, Prescriptions given X 1. 09:14 Patient left the ED. rb1 Signatures: Anthony Mitchell PA PA jmm Quilty, Betty bq Sanford, Demi ds1 Rachel Evans, RN RN rb1 Tremayne Phipps RN RN jd3 Tay Sanchez RN RN rr5 Corrections: (The following items were deleted from the chart) 08:22 07:00 Reassessment: Patient appears in no apparent distress at this time. Patient rb1 and/or family updated on plan of care and expected duration. Pain level reassessed. Patient is alert, oriented x 3, equal unlabored respirations, skin warm/dry/pink. rb1
[2019-12-20] MEDS ORDERED: CEFTRIAXONE/SWI 1gm 1 GM/10 ML SYR ONE (08:55)
[2019-12-20 09:39] VITALS: BP 112/59; TEMP 98.4; O2SAT 99
[2019-12-20 10:47] LABS: Platelet Estimate ADEQ; Urine White Blood Cell Casts OK
[2019-12-20 10:48] LABS: Anisocytosis 1+; Blood Morphology Comment NOTED (NOT SEEN)
== END 2019-12-20 09:14 | disposition home or self-care (01) ==
LOC: ER 06:11
DX: N39.0 Urinary tract infection, site not specified (principal); R19.7 Diarrhea, unspecified
CPT/HCPCS: 87040 ×2; 87070; 87088; 85025; 87086; 36415; 81025; 87081; 83605; 80053; 84145; 87804 ×2; 74177; 96374; 99284; Q9967; J0696; J7030; 81003; 81015

== ENCOUNTER 2020-01-14 11:46 | Emergency (ER) | payer OTHER ==
[2020-01-14] MEDS ORDERED: LIDOCAINE 1% MPF 5 ML VIAL ONE (13:14)
[2020-01-14] MEDS ORDERED: HYDROCODONE/APAP 10/325 TAB ONE (13:15)
--- NOTE | 2020-01-14 14:27 | EDPHYS ---
Physician Documentation [facility] Name: Patsy Gupta Age: 24 yrs Sex: Female : 1995 Arrival Date: 01/14/2020 Time: 11:51 Bed 6 Private MD: ED Physician Ellis Gonzales HPI: 01/13 14:34 This 24 yrs old Female presents to ER via Ambulatory with complaints of Fever, kb Sore Throat. 14:34 The patient presents with sore throat. The patient describes throat pain as constant. kb Onset: The symptoms/episode began/occurred 4 day(s) ago. Severity of symptoms: At their worst the symptoms were moderate, in the emergency department the symptoms are unchanged. Modifying factors: The symptoms are alleviated by nothing, the symptoms are aggravated by swallowing, Patient's oral intake status: good unaware of sick contact. Associated signs and symptoms: Pertinent positives: fever, Sore throat Pt reports vaginal pain started on Sunday, sore throat started on Sunday and fever started today. The patient has not experienced similar symptoms in the past. The patient has not recently seen a physician. 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 - Social history:: Smoking status: Patient denies any tobacco usage or history of. ROS: 14:34 Cardiovascular: Negative for chest pain, palpitations, and edema, Respiratory: Negative kb for shortness of breath, cough, wheezing, and pleuritic chest pain, Abdomen/GI: Negative for abdominal pain, nausea, vomiting, diarrhea, and constipation, Back: Negative for injury and pain, MS/Extremity: Negative for injury and deformity, Skin: Negative for injury, rash, and discoloration, Neuro: Negative for headache, weakness, numbness, tingling, and seizure. 14:34 Constitutional: Positive for fever. 14:34 ENT: Positive for sore throat. 14:48 : Positive for vaginal pain. kb Exam: 14:41 Constitutional: This is a well developed, well nourished patient who is awake, alert, kb and in no acute distress. Head/Face: Normocephalic, atraumatic. ENT: Nares patent. No nasal discharge, no septal abnormalities noted. Tympanic membranes are normal and external auditory canals are clear. Oropharynx with no redness, swelling, or masses, exudates, or evidence of obstruction, uvula midline. Mucous membranes moist. Neck: Trachea midline, no thyromegaly or masses palpated, and no cervical lymphadenopathy. Supple, full range of motion without nuchal rigidity, or vertebral point tenderness. No Meningismus. Chest/axilla: Normal chest wall appearance and motion. Nontender with no deformity. No lesions are appreciated. Cardiovascular: Regular rate and rhythm with a normal S1 and S2. No gallops, murmurs, or rubs. Normal PMI, no JVD. No pulse deficits. Respiratory: Lungs have equal breath sounds bilaterally, clear to auscultation and percussion. No rales, rhonchi or wheezes noted. No increased work of breathing, no retractions or nasal flaring. Abdomen/GI: Soft, non-tender, with normal bowel sounds. No distension or tympany. No guarding or rebound. No evidence of tenderness throughout. Back: No spinal tenderness. No costovertebral tenderness. Full range of motion. Skin: Warm, dry with normal turgor. Normal color with no rashes, no lesions, and no evidence of cellulitis. MS/ Extremity: Pulses equal, no cyanosis. Neurovascular intact. Full, normal range of motion. Neuro: Awake and alert, GCS 15, oriented to person, place, time, and situation. Cranial nerves II-XII grossly intact. Motor strength 5/5 in all extremities. Sensory grossly intact. Cerebellar exam normal. Normal gait. 14:41 : Pelvic Exam: External exam: Bartholin's cyst present, discharge, white, the family/significant other was present for the exam. Vital Signs: 12:56 BP 118 / 70; Pulse 102; Resp 22; Temp 100; Pulse Ox 100% ; Weight 56.25 kg; Pain 10/10; jl7 14:15 BP 109 / 64; Pulse 89; Resp 16; Temp 99.2; Pulse Ox 99% ; hb Procedures: 14:41 I \T\ D: Incision and drainage was performed for an abscess of the right Bartholin's kb gland. Prepped with Betadine, Anesthetized with 2 ml's 1% Lidocaine. Incised with #11 blade. Drained moderate amount purulent fluid. the patient tolerated the procedure well. MDM: 12:54 Patient medically screened. kb 14:40 Data reviewed: vital signs, nurses notes. Data interpreted: Pulse oximetry: on room air kb is 99 %. Interpretation: normal. Counseling: I had a detailed discussion with the patient and/or guardian regarding: the historical points, exam findings, and any diagnostic results supporting the discharge/admit diagnosis, lab results, the need for outpatient follow up, a family practitioner, an OB/Gyne specialist, to return to the emergency department if symptoms worsen or persist or if there are any questions or concerns that arise at home. 01/13 13:05 Order name: Flu; Complete Time: 14:07 kb 01/13 13:05 Order name: Strep; Complete Time: 13:54 kb 01/13 13:05 Order name: I\T\D Setup; Complete Time: 13:14 kb Administered Medications: 13:13 Drug: [place] 10 mg-325 mg 1 tabs Route: PO; jl7 15:03 Follow up: Response: No adverse reaction sv 14:00 Drug: Lidocaine (1 %) 1 vials {Note: given to Na ABREU.} Volume: 5 ml; Route: sv Infiltration; Disposition: 16:28 Co-signature as Attending Physician, Ellis Gonzales MD I agree with the assessment and kdr plan of care. Disposition: 01/14/20 14:27 Discharged to Home. Impression: Streptococcal pharyngitis, Abscess of Bartholin's gland. - Condition is Stable. - Discharge Instructions: Strep Throat, [id number], Bartholin Cyst or Abscess, [id number]. - Prescriptions for Augmentin 875- 125 mg Oral Tablet - take 1 tablet by ORAL route every 12 hours for 10 days; 20 tablet. - Medication Reconciliation Form, Thank You Letter, Antibiotic Education, Prescription Opioid Use form. - Follow up: Emergency Department; When: As needed; Reason: Worsening of condition. Follow up: Private Physician; When: 2 - 3 days; Reason: Recheck today's complaints, Continuance of care, Re-evaluation by your physician. Signatures: Dispatcher [employer] EDNa Navarro FNP-C FNP-Ckb Verde, Stephanie, RN RN sv Rittger, Kevin, MD MD kdr Leal, Jahala, RN RN jl7 Corrections: (The following items were deleted from the chart) 15:08 14:27 01/14/2020 14:27 Discharged to Home. Impression: Streptococcal pharyngitis; sv Abscess of Bartholin's gland. Condition is Stable. Forms are Medication Reconciliation Form, Thank You Letter, Antibiotic Education, Prescription Opioid Use. Follow up: Emergency Department; When: As needed; Reason: Worsening of condition. Follow up: Private Physician; When: 2 - 3 days; Reason: Recheck today's complaints, Continuance of care, Re-evaluation by your physician. kb
--- NOTE | 2020-01-14 14:27 | ER ---
Nurse's Notes [facility] Name: Patsy Gupta Age: 24 yrs Sex: Female : 1995 Arrival Date: 01/14/2020 Time: 11:51 Bed 6 Private MD: Diagnosis: Streptococcal pharyngitis;Abscess of Bartholin's gland Presentation: 01/13 12:56 Chief complaint: Patient states: Recent 12-04-2019, c/o vaginal pain and irritation jl7 since Sunday; fever and sore throat started today. Coronavirus screen: The patient has NOT traveled to a country currently being monitored by the [facility] within the last 14 days. Proceed with normal triage procedures. The patient has NOT had contact with any known and/or suspected case of coronavirus. Proceed with normal triage procedures. Ebola Screen: No symptoms or risks identified at this time. Initial Sepsis Screen: Does the patient meet any 2 criteria? RR > 20 per min. HR > 90 bpm. Yes Does the patient have a suspected source of infection? No. Patient's initial sepsis screen is negative. Risk Assessment: Do you want to hurt yourself or someone else? Patient reports no desire to harm self or others. Onset of symptoms was January 11, 2020. 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 - Social history:: Smoking status: Patient denies any tobacco usage or history of. Screenin:00 Abuse screen: Denies threats or abuse. Denies injuries from another. Nutritional hb screening: No deficits noted. Tuberculosis screening: No symptoms or risk factors identified. Fall Risk None identified. Assessment: 13:30 General: Appears in no apparent distress. uncomfortable, Behavior is calm, cooperative, sv appropriate for age. Pain: Complains of pain in pelvis and sore throat. Neuro: Level of Consciousness is awake, alert, obeys commands, Oriented to person, place, time, situation, Gait is steady. Respiratory: Airway is patent Respiratory effort is even, unlabored, Respiratory pattern is regular, symmetrical. : Reports vaginal itching. EENT: Reports pain in left aspect of posterior pharynx and right aspect of posterior pharynx. Derm: Skin is pink, warm \T\ dry. 14:30 Reassessment: Patient appears in no apparent distress at this time. Patient and/or hb family updated on plan of care and expected duration. Pain level reassessed. Patient is alert, oriented x 3, equal unlabored respirations, skin warm/dry/pink. Vital Signs: 12:56 BP 118 / 70; Pulse 102; Resp 22; Temp 100; Pulse Ox 100% ; Weight 56.25 kg; Pain 10/10; jl7 14:15 BP 109 / 64; Pulse 89; Resp 16; Temp 99.2; Pulse Ox 99% ; hb ED Course: 11:51 Patient arrived in ED. mr 11:56 Na Thacker FNP-C is PHCP. kb 11:56 Ellis Gonzales MD is Attending Physician. kb 12:54 Na Thacker FNP-C is PHCP. kb 12:54 Ellis Gonzlaes MD is Attending Physician. kb 12:59 Triage completed. jl7 13:00 Arm band placed on right wrist. jl7 13:35 Patient has correct armband on for positive identification. sv 13:35 Strep Sent. dh3 13:35 Flu Sent. dh3 14:00 Assist provider with I \T\ D: of an abscess on Bartholin's gland Set up I\T\D tray. sv Performed by Na BRANHAM. Patient did not have IV access during this emergency room visit. 14:14 Yoana Kelley, RN is Primary Nurse. hb Administered Medications: 13:13 Drug: [place] 10 mg-325 mg 1 tabs Route: PO; jl7 15:03 Follow up: Response: No adverse reaction sv 14:00 Drug: Lidocaine (1 %) 1 vials {Note: given to Na ABREU.} Volume: 5 ml; Route: sv Infiltration; Outcome: 14:27 Discharge ordered by . kb 15:04 Discharged to home ambulatory, with family. sv 15:04 Condition: stable 15:04 Discharge instructions given to patient, Instructed on discharge instructions, follow up and referral plans. medication usage, wound care, Demonstrated understanding of instructions, follow-up care, medications, Prescriptions given X 1. 15:08 Patient left the ED. sv Signatures: Na Thacker FNP-C FNP-Ckb Mahi Lauren, RN RN nate Harris, Kimmie Yoana Cohen, RN RN Juan Galvez RN RN [facility] Calista Rachel [facility]
[2020-01-14 15:17] VITALS: BP 109/64; TEMP 99.2; O2SAT 99
== END 2020-01-14 15:08 | disposition home or self-care (01) ==
LOC: ER 11:46
PROC: 0U9L0ZZ Drainage of Vestibular Gland, Open Approach (ICD-10-PCS; principal; 2020-01-14)
DX: N75.1 Abscess of Bartholin's gland (principal); J02.0 Streptococcal pharyngitis
CPT/HCPCS: 87081; 87804; 99284